=== PATIENT | female | born 1965 | race Caucasian/White ===

== ENCOUNTER 2019-08-26 19:41 | Observation (INO) ==
[2019-08-26 19:56] VITALS: BMI 32.7
[2019-08-26 20:23] LABS: BILIRUBIN,URINE NEGATIVE (NEGATIVE); BLOOD/HEMOGLOBIN,URINE 2+ (NEGATIVE); GLUCOSE, URINE NEGATIVE (NEGATIVE); KETONES,URINE 2+ (NEGATIVE); LEUKOCYTE ESTERASE ,URINE 2+ (NEGATIVE); NITRITES,URINE POSITIVE (NEGATIVE); PROTEIN,URINE 2+ (NEGATIVE); UROBILINOGEN,URINE NORMAL (NORMAL)
[2019-08-26 20:26] LABS: APPEARANCE,URINE CLEAR (CLEAR); COLOR,URINE YELLOW (YELLOW)
[2019-08-26 20:30] LABS: BACTERIA,URINE 3+ /HPF (NEGATIVE); SQUAMOUS EPITHELIAL CELL,UR FEW /HPF (NEGATIVE)
[2019-08-26] MEDS ORDERED: NS 1000 ML 1,000 ML IV ONE (20:43)
[2019-08-26] MEDS ORDERED: MORPHINE SULFATE INJ 4 MG IVP ONE (20:43)
[2019-08-26] MEDS ORDERED: ZOFRAN INJ 4 MG VIAL IVP ONE (20:43)
--- NOTE | 2019-08-26 20:46 | DR.GENAD ---
HPI - PCP Primary Care Physician: mary fiore - HPI Comment HPI Comment: 54 y/o w/extensive abd issues and 40 lbs wt loss over the past 1-2 month finished macrobid earlier this month and presents now with llq pain x one day as well as persistent decrease in appetite and worsening weakness; she has nausea but no vomiting and had diarrhea yesterday; she was to have repair of "large hiatal hernia" earlier this month but was found to have severe gastroparesis just prior to the surgery and was scheduled for gastric emptying study instead; she apparently also recently developed afib and is undergoing eval for that; she passed out a few days ago supposedly from dehydration; she has had kidney stones in the past but denies hematuria and dysuria currently. - Complaint/Symptoms Chief Complaint:: pt states" i feel like my heart maybe in a-fib. I been sick for the last few days just feeling bad. I just got over a bad uti i'm not sure whats wrong I just feel bad" - Nurses notes reviewed Nurses Notes Review: Yes - Source History Provided: Patient - Mode of Arrival Mode of Arrival: Ambulatory - Timing Onset of Chief Complaint: 08/23/19 PMH - PMH Past Medical History: Yes Past Medical History: GERD, Hypertension Past Medical History Comment: Afib Past Surgical History: Yes Surgical History: Appendectomy, Cholecystectomy, Hysterectomy, Other - Family History History of Family Medical Conditions: Yes Family Medical History: Cancer - Social History Do you use any recreational Drugs:: No Lives With: Spouse Lives Where: Home - infectious screening In the last 2 months have you had wt loss of >10#?: NO Have you had fever, night sweats or hemotysis?: No Have you traveled outside the country in the last 6 months?: No Isolation: Standard ROS - Review of Systems Constitutional: Fever, Malaise, Fatigue, Loss of Appetite Eyes: No Symptoms Reported ENTM: No Symptoms Reported Respiratoy: No Symptoms Reported Cardiovascular: See HPI, Palpitations, Syncope Gastrointestinal/Abdominal: See HPI, Abdominal Pain, Nausea Genitourinary: No Symptoms Reported, See HPI Neurological: See HPI, Weakness Musculoskeletal: No Symptoms Reported Integumentary: No Symptoms Reported Hematologic/Lymphatic: No Symptoms Reported Endocrine: No Symptoms Reported Psychiatric: No Symptoms Reported PE - General Limitations: No Limitations General Appearance: Alert, In No Apparent Distress - Head Head Exam: Normal Inspection - Eyes Eye exam: Normal Appearance - ENT ENT Exam: Normal Exam Nose Exam: Normal Nose Exam Mouth Exam: Normal Inspection - Neck Neck Exam: Normal Inspection - Chest Chest Inspection: Normal Inspection, Symmetric Chest Wall Rise - Respiratory Respiratory Exam: Normal Lung Sounds Bilat Respiratory Exam: Bilateral Clear to Auscultation - Abdominal Exam Abdominal Exam: Normal Inspection, Soft, Tenderness, Hypoactive Bowel Sounds Abdominal Tenderness: LUQ - Extremities Extremities Exam: Normal Inspection, Full ROM - Neurologic Neurological Exam: Alert, Oriented X3, CN II-XII Intact - Psychiatric Psychiatric Exam: Normal Affect - Skin Skin Exam: Warm, Dry - Vital Signs Vitals: Temperature 101.2 F Pulse Rate 99 Respiratory Rate 20 Blood Pressure 138/82 O2 Sat by Pulse Oximetry 100 Course - Reevaluation 1st: Unchanged (still w/quite a bit of pain; "morphine doesn't work for me; demerol does better") - Consultation Called: 22:40 (Tito) Call Returned: 22:44 Consultation Comments: accepted ROR - Labs Reviewed Laboratory Results Reviewed?: Yes Result Diagrams: 08/26/19 21:20 08/26/19 21:20 - Other Results Comments: No CT evidence of obstructive uropathy is appreciated. Cholecystectomy. Appendectomy. Hysterectomy. - XRAY XRAY Interpreted by: Radiologist - Labs Reviewed Laboratory: WBC 6.7 X10^3/uL (3.6-10.0) 08/26/19 21:20 RBC 4.67 X10^6/uL (3.5-5.4) 08/26/19 21:20 Hgb 15.1 g/dL (12.0-16.0) 08/26/19 21:20 Hct 43.4 % (36.0-47.0) 08/26/19 21:20 MCV 92.9 fL (80.0-100.0) 08/26/19 21:20 MCH 32.4 pg (27.0-34.0) 08/26/19 21:20 MCHC 34.9 g/dL (33.0-35.0) 08/26/19 21:20 RDW 14.1 % (11.6-16.5) 08/26/19 21:20 Plt Count 290 X10^3/uL (150.0-450.0) 08/26/19 21:20 MPV 8.1 fL (7.4-11.0) 08/26/19 21:20 Neut % (Auto) 54.8 % (42.0-75.0) 08/26/19 21:20 Lymph % (Auto) 36.9 % (21.0-51.0) 08/26/19 21:20 [place] % (Auto) 6.1 % (0.0-13.0) 08/26/19 21:20 Eos % (Auto) 1.2 % (0.9-2.9) 08/26/19 21:20 Baso % (Auto) 1.0 % (0.2-1.0) 08/26/19 21:20 Neut # (Auto) 3.7 x10^3/uL (2.2-4.8) 08/26/19 21:20 Lymph # (Auto) 2.5 X10^3/uL (1.3-2.9) 08/26/19 21:20 [place] # (Auto) 0.4 x10^3/uL (0.3-0.8) 08/26/19 21:20 Eos # (Auto) 0.1 x10^3/uL (0.0-0.2) 08/26/19 21:20 Baso # (Auto) 0.1 X10^3/uL (0.0-0.1) 08/26/19 21:20 Absolute Nucleated RBC 0.0 /100WBC 08/26/19 21:20 Sodium 143 mmol/L (136-145) 08/26/19 21:20 Corrected Sodium TNP 08/26/19 21:20 Potassium 4.0 mmol/L (3.5-5.1) 08/26/19 21:20 Chloride 106 mmol/L (98-107) 08/26/19 21:20 Carbon Dioxide 20.8 mmol/L (21-32) L 08/26/19 21:20 BUN 17 mg/dL (7-18) 08/26/19 21:20 Creatinine 1.14 mg/dL (0.55-1.02) H 08/26/19 21:20 Est GFR (MDRD) Af Amer > 60 (>60) 08/26/19 21:20 Est GFR (MDRD) Non-Af 52 (>60) L 08/26/19 21:20 Glucose 95 mg/dL (65-99) 08/26/19 21:20 Lactic Acid 1.9 mmol/L (0.4-2.0) 08/26/19 22:50 Calcium 9.9 mg/dL (8.5-10.1) 08/26/19 21:20 Corrected Calcium TNP 08/26/19 21:20 Total Bilirubin 0.40 mg/dL (0.2-1.0) 08/26/19 21:20 AST 21 Units/L (15-37) 08/26/19 21:20 ALT 29 Units/L (12-78) 08/26/19 21:20 Alkaline Phosphatase 72 Units/L (46-116) 08/26/19 21:20 Creatine Kinase 81 Units/L (26-192) 08/26/19 21:20 CK-MB (CK-2) < 1.0 ng/mL (0-4.0) 08/26/19 21:20 CK/CKMB % Calc 1.2 % (<4) 08/26/19 21:20 Troponin I < 0.02 ng/mL (0-1.5) 08/26/19 21:20 Total Protein 8.7 g/dL (6.4-8.2) H 08/26/19 21:20 Albumin 4.3 g/dL (3.4-5.0) 08/26/19 21:20 Globulin 4.4 g/dL (2.5-4.5) 08/26/19 21:20 Albumin/Globulin Ratio 1.0 Ratio (1.1-2.1) L 08/26/19 21:20 Specimen Type Clean catch urine 08/26/19 19:58 Urine Color Yellow (YELLOW) 08/26/19 19:58 Urine Appearance Clear (CLEAR) 08/26/19 19:58 Urine pH 5.0 (5.0 - 8.0) 08/26/19 19:58 Ur Specific [place] 1.025 (1.000-1.030) 08/26/19 19:58 Urine Protein 2+ (NEGATIVE) 08/26/19 19:58 Urine Glucose (UA) Negative (NEGATIVE) 08/26/19 19:58 Urine Ketones 2+ (NEGATIVE) 08/26/19 19:58 Urine Occult Blood 2+ (NEGATIVE) 08/26/19 19:58 Urine Nitrite Positive (NEGATIVE) 08/26/19 19:58 Urine Bilirubin Negative (NEGATIVE) 08/26/19 19:58 Urine Urobilinogen Normal (NORMAL) 08/26/19 19:58 Ur Leukocyte Esterase 2+ (NEGATIVE) 08/26/19 19:58 Urine RBC 5-10 /HPF (0-3) A 08/26/19 19:58 Urine WBC 30-50 /HPF (0-5) A 08/26/19 19:58 Ur Squamous Epith Cells Few /HPF (NEGATIVE) 08/26/19 19:58 Urine Bacteria 3+ /HPF (NEGATIVE) 08/26/19 19:58 Ur Culture Indicated? Yes/culture set up 08/26/19 19:58 Influenza Type A (PCR) Negative (NEGATIVE) 08/26/19 19:58 Influenza Type B (PCR) Negative (NEGATIVE) 08/26/19 19:58 S. pyogenes (TEM-PCR) Not detected (NOT DETECT) 08/26/19 19:58 Opioid - Opioid Risk Tool Age (Porfirio box if 16-45): No History of Preadolescent Sexual Abuse: No Total: 0 Total Score Risk Category: Low Risk - Diagnosis Discharge Problem: Cystitis, Fluttering heart, Nausea, Chest pain, atypical Sepsis Qualifiers: Sepsis type: sepsis due to unspecified organism Sepsis acute organ dysfunction status: without acute organ dysfunction Qualified Code(s): A41.9 - Sepsis, unspecified organism Abdominal pain Qualifiers: Abdominal location: left lower quadrant Qualified Code(s): R10.32 - Left lower quadrant pain - Discharge Plan Disposition: 09 ADMITTED INPATIENT Condition: Stable - Follow ups/Referrals Follow ups/Referrals: MARY FIORE [Primary Care Provider] - 3 days - Instructions Instructions: Nausea, Adult Additional Notes - Additional Notes Additional Notes: 2318 pt c/o intermittent "stabbing" cp "but you know I've got that anxiety too"; started after IV zosyn hung; appears anxious; constantly moving; no diaphoresis, tachy, reg, clear
[2019-08-26 20:55] LABS: STREP A BY PCR NOT DETECTED (NOT DETECT)
[2019-08-26] MEDS ORDERED: ZOFRAN INJ 4 MG VIAL ONE (21:04)
[2019-08-26] MEDS ORDERED: NS 1000 ML 1,000 ML ONE ×2 (21:04→22:46)
[2019-08-26] MEDS ORDERED: MORPHINE SULFATE INJ 4 MG ONE (21:05)
--- NOTE | 2019-08-26 21:31 | CT ---
HISTORY: Left lower quadrant pain, hematuria Study: CT abdomen and pelvis without contrast Comparison: January 27, 2015 Technique: Multiple axial images of the abdomen and pelvis were obtained from the lung bases to the pubic symphysis without the administration of IV contrast. Findings: The visualized portions of the lung bases are unremarkable. The liver, spleen, pancreas, adrenals, and kidneys are grossly unremarkable in appearance given limitations of this noncontrast exam. No CT evidence of hydronephrosis is identified. Surgical clips are seen within the gallbladder fossa. By history the appendix and uterus have been surgically removed. Evaluation of the stomach, small bowel, and colon is limited without oral contrast. The urinary bladder is not well distended but otherwise grossly unremarkable. Degenerative changes are seen within the visualized spine. IMPRESSION: No CT evidence of obstructive uropathy is appreciated. Cholecystectomy. Appendectomy. Hysterectomy. Reported By:
[2019-08-26 21:32] LABS: BASOPHILS # (AUTO) 0.1 X10^3/uL (0.0-0.1); EOSINOPHILS # (AUTO) 0.1 x10^3/uL (0.0-0.2); EOSINOPHILS % (AUTO) 1.2 % (0.9-2.9); HEMATOCRIT 43.4 % (36.0-47.0); HEMOGLOBIN 15.1 g/dL (12.0-16.0); LYMPHOCYTES # (AUTO) 2.5 X10^3/uL (1.3-2.9); LYMPHOCYTES % (AUTO) 36.9 % (21.0-51.0); MEAN CORPUSCULAR HEMOGLOBIN 32.4 pg (27.0-34.0); MEAN CORPUSCULAR HGB CONC 34.9 g/dL (33.0-35.0); MEAN CORPUSCULAR VOLUME 92.9 fL (80.0-100.0); MEAN PLATELET VOLUME 8.1 fL (7.4-11.0); MONOCYTES # (AUTO) 0.4 x10^3/uL (0.3-0.8); MONOCYTES % (AUTO) 6.1 % (0.0-13.0); NEUTROPHILS # (AUTO) 3.7 x10^3/uL (2.2-4.8); NEUTROPHILS % (AUTO) 54.8 % (42.0-75.0); PLATELET COUNT 290 X10^3/uL (150.0-450.0); RED BLOOD COUNT 4.67 X10^6/uL (3.5-5.4); RED CELL DISTRIBUTION WIDTH 14.1 % (11.6-16.5); WHITE BLOOD COUNT 6.7 X10^3/uL (3.6-10.0)
[2019-08-26 21:42] LABS: ALANINE AMINOTRANSFERASE 29 Units/L (12-78); ALBUMIN 4.3 g/dL (3.4-5.0); ALKALINE PHOSPHATASE 72 Units/L (46-116); ASPARTATE AMINO TRANSFERASE 21 Units/L (15-37); BLOOD UREA NITROGEN 17 mg/dL (7-18); CALCIUM 9.9 mg/dL (8.5-10.1); CARBON DIOXIDE 20.8 mmol/L (21-32); CHLORIDE 106 mmol/L (98-107); CREATININE 1.14 mg/dL (0.55-1.02); SODIUM 143 mmol/L (136-145); TOTAL PROTEIN 8.7 g/dL (6.4-8.2); eGFR NON BLACK RACES 52 (>60)
[2019-08-26] MEDS ORDERED: ZOSYN VIAL 3.375 GRAMS 3.375 G in NS 100 ML IV + SPIKE MINIBAG* 100 ML IV ONE (22:39)
[2019-08-26] MEDS ORDERED: ZOSYN VIAL 3.375 GRAMS IV ONE (22:45)
[2019-08-26] MEDS ORDERED: NS 100 ML IV + SPIKE MINIBAG* 100 ML IV ONE (22:45)
[2019-08-26] MEDS ORDERED: OFIRMEV IV 1000 MG VIAL 1,000 MG/100 ML VIAL IV PRN (22:52)
[2019-08-26] MEDS ORDERED: ZOFRAN INJ 4 MG VIAL IVP PRN (22:52)
[2019-08-26] MEDS: DEMEROL INJ IVP PRN (23:08)
[2019-08-26] MEDS: ATIVAN INJ 2 MG VIAL IVP PRN (23:27)
[2019-08-26 23:40] LABS: CKMB % 1.2 % (<4); CREATINE KINASE 81 Units/L (26-192); CREATINE KINASE MB < 1.0 ng/mL (0-4.0); TROPONIN I < 0.02 ng/mL (0-1.5)
[2019-08-27] MEDS ORDERED: NS 100 ML IV + SPIKE MINIBAG* 100 ML IV ONE ×2 (05:41→13:00)
[2019-08-27] MEDS: ZOSYN VIAL 3.375 GRAMS IV SCH ×2 (06:08→13:55)
[2019-08-27 07:37] LABS: BASOPHILS % (AUTO) 0.6 % (0.2-1.0); EOSINOPHILS # (AUTO) 0.1 x10^3/uL (0.0-0.2); EOSINOPHILS % (AUTO) 1.9 % (0.9-2.9); HEMATOCRIT 41.6 % (36.0-47.0); HEMOGLOBIN 14.1 g/dL (12.0-16.0); LYMPHOCYTES # (AUTO) 2.2 X10^3/uL (1.3-2.9); LYMPHOCYTES % (AUTO) 40.3 % (21.0-51.0); MEAN CORPUSCULAR HEMOGLOBIN 31.9 pg (27.0-34.0); MEAN CORPUSCULAR HGB CONC 33.9 g/dL (33.0-35.0); MEAN CORPUSCULAR VOLUME 94.2 fL (80.0-100.0); MONOCYTES # (AUTO) 0.4 x10^3/uL (0.3-0.8); MONOCYTES % (AUTO) 8.1 % (0.0-13.0); NEUTROPHILS # (AUTO) 2.7 x10^3/uL (2.2-4.8); NEUTROPHILS % (AUTO) 49.1 % (42.0-75.0); PLATELET COUNT 236 X10^3/uL (150.0-450.0); RED BLOOD COUNT 4.41 X10^6/uL (3.5-5.4); RED CELL DISTRIBUTION WIDTH 14.3 % (11.6-16.5); WHITE BLOOD COUNT 5.6 X10^3/uL (3.6-10.0)
[2019-08-27 07:49] LABS: ALANINE AMINOTRANSFERASE 27 Units/L (12-78); ALBUMIN 3.6 g/dL (3.4-5.0); ALKALINE PHOSPHATASE 65 Units/L (46-116); ASPARTATE AMINO TRANSFERASE 21 Units/L (15-37); BLOOD UREA NITROGEN 17 mg/dL (7-18); CHLORIDE 108 mmol/L (98-107); CREATININE 1.02 mg/dL (0.55-1.02); SODIUM 143 mmol/L (136-145); TOTAL PROTEIN 7.4 g/dL (6.4-8.2); eGFR NON BLACK RACES 60 (>60)
[2019-08-27 08:05] LABS: CKMB % 1.3 % (<4); CREATINE KINASE 78 Units/L (26-192); CREATINE KINASE MB < 1.0 ng/mL (0-4.0); TROPONIN I < 0.02 ng/mL (0-1.5)
[2019-08-27] MEDS ORDERED: ZOFRAN TAB 4 MG PO PRN (08:12)
[2019-08-27] MEDS ORDERED: PREVNAR 13 IM ONE (08:14)
[2019-08-27 08:40] LABS: CHOL/HDL RATIO 7.9 (0.0-5.0)
[2019-08-27] MEDS ORDERED: LOPRESSOR TAB 50 MG PO SCH (09:00)
[2019-08-27] MEDS: PROTONIX TAB 40 MG PO SCH (09:55)
[2019-08-27] MEDS: DEMEROL INJ IVP PRN ×3 (10:17→23:07)
[2019-08-27] MEDS: CARAFATE ORAL SUSP PO SCH ×3 (10:42→20:47)
--- NOTE | 2019-08-27 11:13 | DR.H&P ---
H&P History & Physical for Day of: H&P Date: 08/27/19 Chief Complaint Chief Complaint: Abdominal pain Allergies Allergies Allergy/AdvReac Type Severity Reaction Status Date / Time codeine Allergy Verified 08/26/19 19:52 History of Present Illness History of Present Illness: Pt is a 54 yo f w/ pmhx of Afib, gastroparesis, dysphagia c/o abdominal pain(LLQ, sharp), weakness, and fatigue x 2-3 days. She states she recently completed a course macrobid earlier this month for similar sx. Reports nausea, diarrhea, dysuria, hematuria. Denies fevers, chills, chest pain, shortness of breath, edema. She reports over the past year has had multiple now chronic sx including weight loss of 40 lbs, persistent decrease in appetite, and worsening weakness. She was to have repair of "large hiatal hernia" earlier this month after having EGD by Dr. Berkowitz(Gen Surg) in [facility]. She was referred to specialist in [place] and had barium swallow that showed severe gastroparesis. She also reports recently having episode of pancreatitis for the first time this year and was treated at [facility]. Her Afib hx is after she had a reaction in the past to codeine. Since she is followed by cardiology-Dr Gomez in [place], has had heart cath that was normal and was told likely "electrical conduction" of heart that will need to be evaluated. Past Medical History Past Medical History: GERD and Hypertension Past Surgical History Surgical History: Appendectomy, Cholecystectomy, Hysterectomy and Ortho Surgery Family History Family Medical History: Diabetes Mellitus, [place] and Hypertension Social History Does patient currently use any type of tobacco product: No Have you used tobacco products in the last 12 months: No Type of Tobacco Use: None Does any household member use tobacco: No Alcohol Use: None Drug Use: None Medications Home Medications: codeine Allergy (Verified 08/26/19 19:52) CONTINUE taking the following medications butalbital-acetaminophen [Bupap] 1 tab PO BID PRN 08/27/19 [History] Labs Result Diagrams: 08/27/19 07:25 08/27/19 07:25 Labs: 08/26/19 19:58 Urine,Clean Catch Urine Culture - Preliminary Laboratory WBC 5.6 X10^3/uL (3.6-10.0) 08/27/19 07:25 RBC 4.41 X10^6/uL (3.5-5.4) 08/27/19 07:25 Hgb 14.1 g/dL (12.0-16.0) 08/27/19 07:25 Hct 41.6 % (36.0-47.0) 08/27/19 07:25 MCV 94.2 fL (80.0-100.0) 08/27/19 07:25 MCH 31.9 pg (27.0-34.0) 08/27/19 07:25 MCHC 33.9 g/dL (33.0-35.0) 08/27/19 07:25 RDW 14.3 % (11.6-16.5) 08/27/19 07:25 Plt Count 236 X10^3/uL (150.0-450.0) 08/27/19 07:25 MPV 8.0 fL (7.4-11.0) 08/27/19 07:25 Neut % (Auto) 49.1 % (42.0-75.0) 08/27/19 07:25 Lymph % (Auto) 40.3 % (21.0-51.0) 08/27/19 07:25 [place] % (Auto) 8.1 % (0.0-13.0) 08/27/19 07:25 Eos % (Auto) 1.9 % (0.9-2.9) 08/27/19 07:25 Baso % (Auto) 0.6 % (0.2-1.0) 08/27/19 07:25 Neut # (Auto) 2.7 x10^3/uL (2.2-4.8) 08/27/19 07:25 Lymph # (Auto) 2.2 X10^3/uL (1.3-2.9) 08/27/19 07:25 [place] # (Auto) 0.4 x10^3/uL (0.3-0.8) 08/27/19 07:25 Eos # (Auto) 0.1 x10^3/uL (0.0-0.2) 08/27/19 07:25 Baso # (Auto) 0.0 X10^3/uL (0.0-0.1) 08/27/19 07:25 Absolute Nucleated RBC 0.1 /100WBC 08/27/19 07:25 Sodium 143 mmol/L (136-145) 08/27/19 07:25 Corrected Sodium TNP 08/27/19 07:25 Potassium 4.3 mmol/L (3.5-5.1) 08/27/19 07:25 Chloride 108 mmol/L (98-107) H 08/27/19 07:25 Carbon Dioxide 22.0 mmol/L (21-32) 08/27/19 07:25 BUN 17 mg/dL (7-18) 08/27/19 07:25 Creatinine 1.02 mg/dL (0.55-1.02) 08/27/19 07:25 Est GFR (MDRD) Af Amer > 60 (>60) 08/27/19 07:25 Est GFR (MDRD) Non-Af 60 (>60) 08/27/19 07:25 Glucose 92 mg/dL (65-99) 08/27/19 07:25 Lactic Acid 1.9 mmol/L (0.4-2.0) 08/26/19 22:50 Calcium 9.0 mg/dL (8.5-10.1) 08/27/19 07:25 Corrected Calcium TNP 08/27/19 07:25 Magnesium 2.1 mg/dL (1.7-2.9) 08/27/19 07:25 Total Bilirubin 0.40 mg/dL (0.2-1.0) 08/27/19 07:25 AST 21 Units/L (15-37) 08/27/19 07:25 ALT 27 Units/L (12-78) 08/27/19 07:25 Alkaline Phosphatase 65 Units/L (46-116) 08/27/19 07:25 Creatine Kinase 78 Units/L (26-192) 08/27/19 07:25 CK-MB (CK-2) < 1.0 ng/mL (0-4.0) 08/27/19 07:25 CK/CKMB % Calc 1.3 % (<4) 08/27/19 07:25 Troponin I < 0.02 ng/mL (0-1.5) 08/27/19 07:25 Total Protein 7.4 g/dL (6.4-8.2) 08/27/19 07:25 Albumin 3.6 g/dL (3.4-5.0) 08/27/19 07:25 Globulin 3.8 g/dL (2.5-4.5) 08/27/19 07:25 Albumin/Globulin Ratio 0.9 Ratio (1.1-2.1) L 08/27/19 07:25 Triglycerides 313 mg/dL (0-150) H 08/27/19 07:25 Cholesterol 245 mg/dL (0-200) H 08/27/19 07:25 LDL Cholesterol, Calc 151 mg/dL (0-100) H 08/27/19 07:25 HDL Cholesterol 31 mg/dL (40-60) L 08/27/19 07:25 Cholesterol/HDL Ratio 7.9 (0.0-5.0) H 08/27/19 07:25 Lipase 124 Units/L (73-393) 08/27/19 07:25 Specimen Type Clean catch urine 08/26/19 19:58 Urine Color Yellow (YELLOW) 08/26/19 19:58 Urine Appearance Clear (CLEAR) 08/26/19 19:58 Urine pH 5.0 (5.0 - 8.0) 08/26/19 19:58 Ur Specific [place] 1.025 (1.000-1.030) 08/26/19 19:58 Urine Protein 2+ (NEGATIVE) 08/26/19 19:58 Urine Glucose (UA) Negative (NEGATIVE) 08/26/19 19:58 Urine Ketones 2+ (NEGATIVE) 08/26/19 19:58 Urine Occult Blood 2+ (NEGATIVE) 08/26/19 19:58 Urine Nitrite Positive (NEGATIVE) 08/26/19 19:58 Urine Bilirubin Negative (NEGATIVE) 08/26/19 19:58 Urine Urobilinogen Normal (NORMAL) 08/26/19 19:58 Ur Leukocyte Esterase 2+ (NEGATIVE) 08/26/19 19:58 Urine RBC 5-10 /HPF (0-3) A 08/26/19 19:58 Urine WBC 30-50 /HPF (0-5) A 08/26/19 19:58 Ur Squamous Epith Cells Few /HPF (NEGATIVE) 08/26/19 19:58 Urine Bacteria 3+ /HPF (NEGATIVE) 08/26/19 19:58 Ur Culture Indicated? Yes/culture set up 08/26/19 19:58 Influenza Type A (PCR) Negative (NEGATIVE) 08/26/19 19:58 Influenza Type B (PCR) Negative (NEGATIVE) 08/26/19 19:58 S. pyogenes (TEM-PCR) Not detected (NOT DETECT) 08/26/19 19:58 Review of Systems Constitutional: Weakness; denies Fever and Chills Eyes: No Symptoms Reported ENT: No Symptoms Reported Respiratory: denies Cough, Shortness of Breath and Wheezing Cardiovascular: denies Chest Pain, Palpitations and Edema Gastrointestinal: Nausea, Abdominal Pain (LLQ) and Diarrhea; denies Vomiting and Constipation Genitourinary: Dysuria, Frequency and Hematuria Musculoskeletal: No Symptoms Reported Skin: No Symptoms Reported Neurological: No Symptoms Reported Physical Exam Vital Signs: Temperature 97.8 F Pulse Rate [Left Brachial] 81 Pulse Rate 99 Respiratory Rate 20 Blood Pressure [Left Arm] 129/75 Blood Pressure 138/82 O2 Sat by Pulse Oximetry 99 Oriented: Normal Eyes: Normal Ear: Normal Nose: Normal Throat: Normal Respiratory: Clear Throughout Cardiovascular: Normal : Dysuria and Hematuria Auscultation: Bowel Sounds: Increased Tenderness: LLQ Skin: Normal Musculoskeletal: Normal Psychiatric: Normal Mood Description: Calm Affect: Normal Speech Pattern: Clear Assessment/Plan (1) Cystitis: Status: Acute Plan: Continue IV Zosyn UrineCx:prelim gram - rods >100k, pending final (2) Acute renal failure (ARF): Qualifiers: Acute renal failure type: unspecified Qualified Code(s): N17.9 - Acute kidney failure, unspecified Status: Acute Plan: Likely d/t dehydration, pt tolerating po intake. Renal function improving. Cr:1.14>1.02 (3) Atrial flutter: Qualifiers: Atrial flutter type: unspecified Qualified Code(s): I48.92 - Unspecified atrial flutter Status: Acute Plan: EKG NSR, cardiac enzymes negative. Continue home metoprolol tart. (4) Nondiabetic gastroparesis: Status: Acute (5) Dysphagia: Qualifiers: Dysphagia type: unspecified Qualified Code(s): R13.10 - Dysphagia, unspecified Status: Acute Plan: Will get autoimmune labs to r/o other etiologies. Speech consulted (6) Mixed hyperlipidemia: Status: Acute Plan: ASCVD:4.5%, no statin indicated.
--- NOTE | 2019-08-27 11:33 | RAD ---
HISTORY: Fever Study: Two-view chest Comparison: 07/16/2019. Findings: There is again evidence of lower cervical spine surgery with metallic plate and screws. Trachea is midline. Heart size is upper normal with aortic uncoiling. Linear foci of atelectasis are present the lung bases. The process appears to have increased slightly in the left lung base. No dense consolidation, pleural fluid or pneumothorax is seen. There is no evidence of CHF. IMPRESSION: Bibasilar linear foci of atelectasis. The process appears to have increased slightly in the left lung base. Dense consolidation is seen. Reported By:
[2019-08-27 13:06] LABS: RHEUMATOID FACTOR POSITIVE (NEGATIVE)
[2019-08-27 16:49] LABS: CKMB % 1.3 % (<4); CREATINE KINASE 80 Units/L (26-192); CREATINE KINASE MB < 1.0 ng/mL (0-4.0); TROPONIN I < 0.02 ng/mL (0-1.5)
--- NOTE | 2019-08-27 18:54 | CT ---
CT CHEST WITHOUT IV CONTRAST HISTORY: Follow-up scarring/atelectasis Comparison: Abdomen pelvis CT 08/26/2019 Technique: Multiple axial images of the chest were obtained from the thoracic inlet to the upper abdomen. Dose reduction techniques including Automated Exposure Control (AEC) and adjustment of mA and kV were utlized. Findings: The evaluation of the mediastinal structures is diminished without the use of IV contrast. The heart is normal in size. No pericardial effusion. No suspicious mediastinal or axillary lymph nodes. No focal consolidations, pleural effusions or pneumothorax. Subsegmental atelectasis at the bilateral lung bases. This appears to be new when compared to 1 day prior. Airways are patent. No suspicious pulmonary nodules or masses. Limited images of the upper abdomen are unremarkable. No aggressive osseous lesions. IMPRESSION: 1. New subsegmental atelectasis at the lung bases bilaterally. This is of questionable clinical significance. Correlate with patient's clinical presentation. Reported By:
[2019-08-27] MEDS: ZOSYN VIAL 3.375 GRAMS 3.375 G in NS 100 ML IV + SPIKE MINIBAG* 100 ML IV SCH (21:00)
[2019-08-28] MEDS: ATIVAN INJ 2 MG VIAL IVP PRN ×2 (00:48→14:25)
[2019-08-28] MEDS: DEMEROL INJ IVP PRN ×2 (06:05→12:08)
[2019-08-28] MEDS: CARAFATE ORAL SUSP PO SCH ×2 (06:13→10:50)
[2019-08-28] MEDS: ZOSYN VIAL 3.375 GRAMS 3.375 G in NS 100 ML IV + SPIKE MINIBAG* 100 ML IV SCH (06:13)
[2019-08-28 06:29] LABS: BASOPHILS % (AUTO) 0.8 % (0.2-1.0); EOSINOPHILS # (AUTO) 0.2 x10^3/uL (0.0-0.2); HEMATOCRIT 39.5 % (36.0-47.0); HEMOGLOBIN 13.4 g/dL (12.0-16.0); LYMPHOCYTES # (AUTO) 2.3 X10^3/uL (1.3-2.9); LYMPHOCYTES % (AUTO) 42.5 % (21.0-51.0); MEAN CORPUSCULAR HEMOGLOBIN 32.1 pg (27.0-34.0); MEAN CORPUSCULAR HGB CONC 33.8 g/dL (33.0-35.0); MEAN CORPUSCULAR VOLUME 94.8 fL (80.0-100.0); MEAN PLATELET VOLUME 8.3 fL (7.4-11.0); MONOCYTES # (AUTO) 0.5 x10^3/uL (0.3-0.8); MONOCYTES % (AUTO) 8.6 % (0.0-13.0); NEUTROPHILS # (AUTO) 2.4 x10^3/uL (2.2-4.8); NEUTROPHILS % (AUTO) 45.1 % (42.0-75.0); PLATELET COUNT 236 X10^3/uL (150.0-450.0); RED BLOOD COUNT 4.17 X10^6/uL (3.5-5.4); RED CELL DISTRIBUTION WIDTH 13.9 % (11.6-16.5); WHITE BLOOD COUNT 5.4 X10^3/uL (3.6-10.0)
[2019-08-28 06:30] LABS: BLOOD UREA NITROGEN 12 mg/dL (7-18); CALCIUM 9.2 mg/dL (8.5-10.1); CARBON DIOXIDE 21.8 mmol/L (21-32); CHLORIDE 109 mmol/L (98-107); CREATININE 0.93 mg/dL (0.55-1.02); SODIUM 142 mmol/L (136-145); eGFR NON BLACK RACES > 60 (>60)
[2019-08-28] MEDS ORDERED: LOPRESSOR TAB 25 MG PO SCH (09:00)
[2019-08-28] MEDS: PROTONIX TAB 40 MG PO SCH (09:00)
[2019-08-28] MEDS ORDERED: PHENERGAN TAB 25 MG PO PRN (09:24)
--- NOTE | 2019-08-28 09:30 | PCM.PROG ---
Progress Note Progress Note for Day of Date of Exam: 08/28/19 Subjective Subjective: Pt is a 54 yo f w/ pmhx of Afib, gastroparesis, dysphagia c/o abdominal pain(LLQ, sharp), weakness, and fatigue x 2-3 days. She states she recently completed a course macrobid earlier this month for similar sx. Reports over the past year has had multiple now chronic sx including weight loss of 40 lbs, persistent decrease in appetite, and worsening weakness. She was to have repair of "large hiatal hernia" earlier this month after having EGD by Dr. Berkowitz(Gen Surg) in [place]. She was referred to [facility] in [place] and had barium swallow that showed severe gastroparesis but then was told did not need surgery for hernia. She also reports recently having episode of pancreatitis for the first time this year and was treated at [facility]. -Pt feeling a little better this morning, still c/o nausea and decreased appetite. Abdominal pain has improved. Past Medical Family Social History Past Med/Fam/Surg Hx: No changes since H&P Allergies: Allergies codeine Allergy (Verified 08/26/19 19:52) Review of Systems ROS: Changes notes (describe) ROS changes noted: See above. Vital Signs and I&O's Vital Signs: Temperature 98.2 F Pulse Rate [Right Brachial] 72 Pulse Rate [Left Brachial] 66 Pulse Rate 99 Respiratory Rate 18 Blood Pressure [Right Arm] 111/68 Blood Pressure [Left Arm] 114/62 Blood Pressure 138/82 O2 Sat by Pulse Oximetry 96 Intake and Output: Intake & Output 08/25/19 08/26/19 08/27/19 08/28/19 23:59 23:59 23:59 23:59 Intake Total 1260 / 1260 0 / 0 Output Total 750 / 750 0 / 0 Balance 510 / 510 0 / 0 Physical Exam Oriented: Normal Eyes: Normal Ear: Normal Nose: Normal Throat: Normal Cardiovascular: Normal : Normal Auscultation: Bowel Sounds: Normal Tenderness: LLQ Skin: Normal Musculoskeletal: Normal Psychiatric: Normal Mood Description: Calm Affect: Normal Speech Pattern: Clear and Appropriate Laboratory and Diagnostics Result Diagrams: 08/28/19 05:22 08/28/19 05:22 Labs: 08/26/19 19:58 Urine,Clean Catch Urine Culture - Final Klebsiella Pneumoniae Laboratory WBC 5.4 X10^3/uL (3.6-10.0) 08/28/19 05:22 RBC 4.17 X10^6/uL (3.5-5.4) 08/28/19 05:22 Hgb 13.4 g/dL (12.0-16.0) 08/28/19 05:22 Hct 39.5 % (36.0-47.0) 08/28/19 05:22 MCV 94.8 fL (80.0-100.0) 08/28/19 05:22 MCH 32.1 pg (27.0-34.0) 08/28/19 05:22 MCHC 33.8 g/dL (33.0-35.0) 08/28/19 05:22 RDW 13.9 % (11.6-16.5) 08/28/19 05:22 Plt Count 236 X10^3/uL (150.0-450.0) 08/28/19 05:22 MPV 8.3 fL (7.4-11.0) 08/28/19 05:22 Neut % (Auto) 45.1 % (42.0-75.0) 08/28/19 05:22 Lymph % (Auto) 42.5 % (21.0-51.0) 08/28/19 05:22 [place] % (Auto) 8.6 % (0.0-13.0) 08/28/19 05:22 Eos % (Auto) 3.0 % (0.9-2.9) H 08/28/19 05:22 Baso % (Auto) 0.8 % (0.2-1.0) 08/28/19 05:22 Neut # (Auto) 2.4 x10^3/uL (2.2-4.8) 08/28/19 05:22 Lymph # (Auto) 2.3 X10^3/uL (1.3-2.9) 08/28/19 05:22 [place] # (Auto) 0.5 x10^3/uL (0.3-0.8) 08/28/19 05:22 Eos # (Auto) 0.2 x10^3/uL (0.0-0.2) 08/28/19 05:22 Baso # (Auto) 0.0 X10^3/uL (0.0-0.1) 08/28/19 05:22 Absolute Nucleated RBC 0.1 /100WBC 08/28/19 05:22 Sodium 142 mmol/L (136-145) 08/28/19 05:22 Corrected Sodium TNP 08/28/19 05:22 Potassium 4.0 mmol/L (3.5-5.1) 08/28/19 05:22 Chloride 109 mmol/L (98-107) H 08/28/19 05:22 Carbon Dioxide 21.8 mmol/L (21-32) 08/28/19 05:22 BUN 12 mg/dL (7-18) 08/28/19 05:22 Creatinine 0.93 mg/dL (0.55-1.02) 08/28/19 05:22 Est GFR (MDRD) Af Amer > 60 (>60) 08/28/19 05:22 Est GFR (MDRD) Non-Af > 60 (>60) 08/28/19 05:22 Glucose 85 mg/dL (65-99) 08/28/19 05:22 Lactic Acid 1.9 mmol/L (0.4-2.0) 08/26/19 22:50 Calcium 9.2 mg/dL (8.5-10.1) 08/28/19 05:22 Corrected Calcium TNP 08/27/19 07:25 Magnesium 2.1 mg/dL (1.7-2.9) 08/27/19 07:25 Total Bilirubin 0.40 mg/dL (0.2-1.0) 08/27/19 07:25 AST 21 Units/L (15-37) 08/27/19 07:25 ALT 27 Units/L (12-78) 08/27/19 07:25 Alkaline Phosphatase 65 Units/L (46-116) 08/27/19 07:25 Creatine Kinase 80 Units/L (26-192) 08/27/19 16:14 CK-MB (CK-2) < 1.0 ng/mL (0-4.0) 08/27/19 16:14 CK/CKMB % Calc 1.3 % (<4) 08/27/19 16:14 Troponin I < 0.02 ng/mL (0-1.5) 08/27/19 16:14 Total Protein 7.4 g/dL (6.4-8.2) 08/27/19 07:25 Albumin 3.6 g/dL (3.4-5.0) 08/27/19 07:25 Globulin 3.8 g/dL (2.5-4.5) 08/27/19 07:25 Albumin/Globulin Ratio 0.9 Ratio (1.1-2.1) L 08/27/19 07:25 Triglycerides 313 mg/dL (0-150) H 08/27/19 07:25 Cholesterol 245 mg/dL (0-200) H 08/27/19 07:25 LDL Cholesterol, Calc 151 mg/dL (0-100) H 08/27/19 07:25 HDL Cholesterol 31 mg/dL (40-60) L 08/27/19 07:25 Cholesterol/HDL Ratio 7.9 (0.0-5.0) H 08/27/19 07:25 Lipase 124 Units/L (73-393) 08/27/19 07:25 TSH 3rd Generation 5.163 uIU/mL (0.358-3.74) H 08/27/19 12:21 Specimen Type Clean catch urine 08/26/19 19:58 Urine Color Yellow (YELLOW) 08/26/19 19:58 Urine Appearance Clear (CLEAR) 08/26/19 19:58 Urine pH 5.0 (5.0 - 8.0) 08/26/19 19:58 Ur Specific [place] 1.025 (1.000-1.030) 08/26/19 19:58 Urine Protein 2+ (NEGATIVE) 08/26/19 19:58 Urine Glucose (UA) Negative (NEGATIVE) 08/26/19 19:58 Urine Ketones 2+ (NEGATIVE) 08/26/19 19:58 Urine Occult Blood 2+ (NEGATIVE) 08/26/19 19:58 Urine Nitrite Positive (NEGATIVE) 08/26/19 19:58 Urine Bilirubin Negative (NEGATIVE) 08/26/19 19:58 Urine Urobilinogen Normal (NORMAL) 08/26/19 19:58 Ur Leukocyte Esterase 2+ (NEGATIVE) 08/26/19 19:58 Urine RBC 5-10 /HPF (0-3) A 08/26/19 19:58 Urine WBC 30-50 /HPF (0-5) A 08/26/19 19:58 Ur Squamous Epith Cells Few /HPF (NEGATIVE) 08/26/19 19:58 Urine Bacteria 3+ /HPF (NEGATIVE) 08/26/19 19:58 Ur Culture Indicated? Yes/culture set up 08/26/19 19:58 Rheumatoid Factor Positive (NEGATIVE) A 08/27/19 12:21 Influenza Type A (PCR) Negative (NEGATIVE) 08/26/19 19:58 Influenza Type B (PCR) Negative (NEGATIVE) 08/26/19 19:58 S. pyogenes (TEM-PCR) Not detected (NOT DETECT) 08/26/19 19:58 Miscellaneous Test Cancelled 08/27/19 12:21 Plan (1) Cystitis: Status: Acute Plan: UrineCx:prelim gram - rods >100k, Final: Klebsiella Pneumonia Will change IV Zosyn to po abx, Keflex 500mg BID x 5days. (2) Acute renal failure (ARF): Status: Acute Qualifiers: Acute renal failure type: unspecified Qualified Code(s): N17.9 - Acute kidney failure, unspecified Plan: Likely d/t dehydration, pt tolerating po intake. Cr trending down. Cr:1.14>1.02>0.93 (3) Atrial flutter: Status: Acute Qualifiers: Atrial flutter type: unspecified Qualified Code(s): I48.92 - Unspecifi ed atrial flutter Plan: EKG NSR, cardiac enzymes negative. Continue home metoprolol tart. (4) Nondiabetic gastroparesis: Status: Acute Plan: -Pt has had barium swallow study outpt showing severe gastroparesis. -She will need urgent GI referral outpt d/t dysphagia, decreased appetite, and weight loss. CM to coordinate follow up with patient. Will start Reglan. -Autoimmune workup, labs are send out, can f/u results outpt (5) Dysphagia: Status: Acute Qualifiers: Dysphagia type: unspecified Qualified Code(s): R13.10 - Dysphagia, unspecified Plan: Will get autoimmune labs to r/o other etiologies. Referral to GI. Per speech:Pt reports she has been having difficulty with swallow function, reporting she has been undergoing several tests for GI issues. Pt reports she can only tolerate soft foods like pudding and applesauce at this time; however, reports no difficulty with thin liquids. Pt agreeable to dysphagia evaluation during hospital stay, but reports she is not able to participate at this time due to no desire to eat solids. (6) Mixed hyperlipidemia: Status: Acute Plan: ASCVD:4.5%, no statin indicated. (7) Gastritis: Status: Acute Qualifiers: Gastritis type: unspecified gastritis Chronicity: unspecified Gastritis bleeding: presence of bleeding unspecified Qualified Code(s): K29.70 - Gastritis, unspecified, without bleeding Plan: EGD this year, pt started taking protonix and Carafate. Will add zantac.
[2019-08-28] MEDS ORDERED: ZANTAC PO SCH (10:00)
[2019-08-28] MEDS ORDERED: KEFLEX CAP 500 MG PO SCH (10:00)
[2019-08-28] MEDS ORDERED: REGLAN TAB 5 MG PO SCH (11:30)
--- NOTE | 2019-08-28 11:40 | W.DIS.FURT ---
Summary of Discharge Discharge Summary of Date Date of Exam: 08/28/19 Admission Date Date of Admission: 08/27/19 Admission Diagnosis Patient Problems (Updated 08/28/19 @ 14:03 by Fercho Francis) UTI (urinary tract infection) (Acute) N39.0 Gastritis (Acute) K29.70 Mixed hyperlipidemia (Chronic) E78.2 Acute renal failure (ARF) (Acute) N17.9 Dysphagia (Acute) R13.10 Nondiabetic gastroparesis (Acute) K31.84 Atrial flutter (Chronic) I48.92 Abdominal pain (Acute) R10.9 Sepsis (Acute) A41.9 Cystitis (Acute) N30.90 Nausea (Acute) R11.0 Chest pain, atypical (Acute) R07.89 Hospital Course: Pt is a 54 yo f w/ pmhx of Afib, gastroparesis, dysphagia admitted for abdominal pain(LLQ, sharp), weakness, and fatigue x 2-3 days. She states she recently completed a course macrobid earlier this month for similar sx. Reports over the past year has had multiple now chronic sx including weight loss of 40 lbs, persistent decrease in appetite, worsening weakness. She also states having pancreatitis for the first time this year at hospital in [place]. She was to have repair of "large hiatal hernia" earlier this month after having EGD by Dr. Berkowitz(Gen Surg) in [place]. She was referred to surgical sales representative in [place] and had barium swallow that showed severe gastroparesis but then was told did not need surgery for hernia. It was advised she have a gastric emptying study but has not been done yet. Pt had atelectasis noted on CXR, CT chest and AI labs performed to help determine etiology or provide some evidence of possible underlying AI process that may be of cause for her sx. Impression:1.New subsegmental atelectasis at the lung bases bilaterally. This is of questionable clinical significance. Further evaluation if indicated to be determined by pcp on outpt follow up. Pt's labs and vitals improved and were wnl and stable on discharge. Discussed with CM urgent referral to GI for further evaluation. See below for hospital course. (1) Cystitis: UrineCx:prelim gram - rods >100k, Final: Klebsiella Pneumonia IV Zosyn changed to po abx, Keflex 500mg BID x 5days on d/c. (2) Acute renal failure (ARF): Likely d/t dehydration, resolved, Cr:1.14>1.02>0.93 (3) Atrial flutter: Pt w/ hx and was taking metoprolol tartrate 50mg once daily >changed to 25mg BID. EKG NSR, cardiac enzymes negative. Followed by cards outpt. (4) Nondiabetic gastroparesis:Pt has had barium swallow study outpt showing severe gastroparesis. -She will need urgent GI referral outpt d/t dysphagia, decreased appetite, and weight loss. CM to coordinate follow up with patient. Pt started on Reglan, to continue for sx relief on discharge. -Autoimmune workup, labs are send out, can f/u results outpt. (5) Dysphagia:Autoimmune labs results followed up outpt to r/o other etiologies. Referral to GI. Evaluated by ST:Bedside swallowing evaluation completed. Pt accepted puree consistency with no overt s/s of aspiration. Please see full evaluation for details. Pt's diet changed this date to puree with thin liquids. (6) Mixed hyperlipidemia: ASCVD:4.5%, no statin indicated. (7) Gastritis: Noted on EGD this year, started taking protonix and Carafate. Addition of zantac. Vital Signs: Vital Signs (72 hours) 08/26/19 19:45 08/26/19 21:28 08/26/19 21:58 Temperature 101.2 F H Pulse Rate 99 H Pulse Rate [Left Brachial] Pulse Rate [Right Brachial] Respiratory Rate 22 22 24 Blood Pressure 138/82 Blood Pressure [Left Arm] Blood Pressure [Right Arm] O2 Sat by Pulse Oximetry 100 08/26/19 23:08 08/26/19 23:38 08/27/19 00:53 Temperature Pulse Rate Pulse Rate [Left Brachial] 104 H Pulse Rate [Right Brachial] Respiratory Rate 20 22 22 Blood Pressure Blood Pressure [Left Arm] 129/85 Blood Pressure [Right Arm] O2 Sat by Pulse Oximetry 99 08/27/19 00:55 08/27/19 04:00 08/27/19 08:00 Temperature 99.0 F 97.9 F 97.8 F Pulse Rate Pulse Rate [Left Brachial] 95 H 86 81 Pulse Rate [Right Brachial] Respiratory Rate 20 18 18 Blood Pressure Blood Pressure [Left Arm] 143/61 111/59 129/75 Blood Pressure [Right Arm] O2 Sat by Pulse Oximetry 98 97 99 08/27/19 10:17 08/27/19 10:47 08/27/19 12:00 Temperature 98.0 F Pulse Rate Pulse Rate [Left Brachial] 66 Pulse Rate [Right Brachial] Respiratory Rate 20 20 18 Blood Pressure Blood Pressure [Left Arm] 102/58 Blood Pressure [Right Arm] O2 Sat by Pulse Oximetry 96 08/27/19 16:00 08/27/19 16:12 08/27/19 16:41 Temperature 97.7 F Pulse Rate Pulse Rate [Left Brachial] Pulse Rate [Right Brachial] 63 Respiratory Rate 18 20 18 Blood Pressure Blood Pressure [Left Arm] Blood Pressure [Right Arm] 130/74 O2 Sat by Pulse Oximetry 99 08/27/19 20:00 08/27/19 23:07 08/27/19 23:37 Temperature 98.2 F Pulse Rate Pulse Rate [Left Brachial] Pulse Rate [Right Brachial] 60 Respiratory Rate 20 20 20 Blood Pressure Blood Pressure [Left Arm] Blood Pressure [Right Arm] 119/75 O2 Sat by Pulse Oximetry 98 08/28/19 00:00 08/28/19 04:00 08/28/19 06:05 Temperature 97.7 F 97.8 F Pulse Rate Pulse Rate [Left Brachial] Pulse Rate [Right Brachial] 68 72 Respiratory Rate 20 20 18 Blood Pressure Blood Pressure [Left Arm] Blood Pressure [Right Arm] 145/80 111/68 O2 Sat by Pulse Oximetry 96 95 08/28/19 06:35 08/28/19 08:00 Temperature 98.2 F Pulse Rate Pulse Rate [Left Brachial] 66 Pulse Rate [Right Brachial] Respiratory Rate 18 18 Blood Pressure Blood Pressure [Left Arm] 114/62 Blood Pressure [Right Arm] O2 Sat by Pulse Oximetry 96 Labs: Laboratory Last Values WBC 5.4 X10^3/uL (3.6-10.0) 08/28/19 05:22 RBC 4.17 X10^6/uL (3.5-5.4) 08/28/19 05:22 Hgb 13.4 g/dL (12.0-16.0) 08/28/19 05:22 Hct 39.5 % (36.0-47.0) 08/28/19 05:22 MCV 94.8 fL (80.0-100.0) 08/28/19 05:22 MCH 32.1 pg (27.0-34.0) 08/28/19 05:22 MCHC 33.8 g/dL (33.0-35.0) 08/28/19 05:22 RDW 13.9 % (11.6-16.5) 08/28/19 05:22 Plt Count 236 X10^3/uL (150.0-450.0) 08/28/19 05:22 MPV 8.3 fL (7.4-11.0) 08/28/19 05:22 Neut % (Auto) 45.1 % (42.0-75.0) 08/28/19 05:22 Lymph % (Auto) 42.5 % (21.0-51.0) 08/28/19 05:22 [place] % (Auto) 8.6 % (0.0-13.0) 08/28/19 05:22 Eos % (Auto) 3.0 % (0.9-2.9) H 08/28/19 05:22 Baso % (Auto) 0.8 % (0.2-1.0) 08/28/19 05:22 Neut # (Auto) 2.4 x10^3/uL (2.2-4.8) 08/28/19 05:22 Lymph # (Auto) 2.3 X10^3/uL (1.3-2.9) 08/28/19 05:22 [place] # (Auto) 0.5 x10^3/uL (0.3-0.8) 08/28/19 05:22 Eos # (Auto) 0.2 x10^3/uL (0.0-0.2) 08/28/19 05:22 Baso # (Auto) 0.0 X10^3/uL (0.0-0.1) 08/28/19 05:22 Absolute Nucleated RBC 0.1 /100WBC 08/28/19 05:22 Sodium 142 mmol/L (136-145) 08/28/19 05:22 Corrected Sodium TNP 08/28/19 05:22 Potassium 4.0 mmol/L (3.5-5.1) 08/28/19 05:22 Chloride 109 mmol/L (98-107) H 08/28/19 05:22 Carbon Dioxide 21.8 mmol/L (21-32) 08/28/19 05:22 BUN 12 mg/dL (7-18) 08/28/19 05:22 Creatinine 0.93 mg/dL (0.55-1.02) 08/28/19 05:22 Est GFR (MDRD) Af Amer > 60 (>60) 08/28/19 05:22 Est GFR (MDRD) Non-Af > 60 (>60) 08/28/19 05:22 Glucose 85 mg/dL (65-99) 08/28/19 05:22 Lactic Acid 1.9 mmol/L (0.4-2.0) 08/26/19 22:50 Calcium 9.2 mg/dL (8.5-10.1) 08/28/19 05:22 Corrected Calcium TNP 08/27/19 07:25 Magnesium 2.1 mg/dL (1.7-2.9) 08/27/19 07:25 Total Bilirubin 0.40 mg/dL (0.2-1.0) 08/27/19 07:25 AST 21 Units/L (15-37) 08/27/19 07:25 ALT 27 Units/L (12-78) 08/27/19 07:25 Alkaline Phosphatase 65 Units/L (46-116) 08/27/19 07:25 Creatine Kinase 80 Units/L (26-192) 08/27/19 16:14 CK-MB (CK-2) < 1.0 ng/mL (0-4.0) 08/27/19 16:14 CK/CKMB % Calc 1.3 % (<4) 08/27/19 16:14 Troponin I < 0.02 ng/mL (0-1.5) 08/27/19 16:14 Total Protein 7.4 g/dL (6.4-8.2) 08/27/19 07:25 Albumin 3.6 g/dL (3.4-5.0) 08/27/19 07:25 Globulin 3.8 g/dL (2.5-4.5) 08/27/19 07:25 Albumin/Globulin Ratio 0.9 Ratio (1.1-2.1) L 08/27/19 07:25 Triglycerides 313 mg/dL (0-150) H 08/27/19 07:25 Cholesterol 245 mg/dL (0-200) H 08/27/19 07:25 LDL Cholesterol, Calc 151 mg/dL (0-100) H 08/27/19 07:25 HDL Cholesterol 31 mg/dL (40-60) L 08/27/19 07:25 Cholesterol/HDL Ratio 7.9 (0.0-5.0) H 08/27/19 07:25 Lipase 124 Units/L (73-393) 08/27/19 07:25 TSH 3rd Generation 5.163 uIU/mL (0.358-3.74) H 08/27/19 12:21 Specimen Type Clean catch urine 08/26/19 19:58 Urine Color Yellow (YELLOW) 08/26/19 19:58 Urine Appearance Clear (CLEAR) 08/26/19 19:58 Urine pH 5.0 (5.0 - 8.0) 08/26/19 19:58 Ur Specific [place] 1.025 (1.000-1.030) 08/26/19 19:58 Urine Protein 2+ (NEGATIVE) 08/26/19 19:58 Urine Glucose (UA) Negative (NEGATIVE) 08/26/19 19:58 Urine Ketones 2+ (NEGATIVE) 08/26/19 19:58 Urine Occult Blood 2+ (NEGATIVE) 08/26/19 19:58 Urine Nitrite Positive (NEGATIVE) 08/26/19 19:58 Urine Bilirubin Negative (NEGATIVE) 08/26/19 19:58 Urine Urobilinogen Normal (NORMAL) 08/26/19 19:58 Ur Leukocyte Esterase 2+ (NEGATIVE) 08/26/19 19:58 Urine RBC 5-10 /HPF (0-3) A 08/26/19 19:58 Urine WBC 30-50 /HPF (0-5) A 08/26/19 19:58 Ur Squamous Epith Cells Few /HPF (NEGATIVE) 08/26/19 19:58 Urine Bacteria 3+ /HPF (NEGATIVE) 08/26/19 19:58 Ur Culture Indicated? Yes/culture set up 08/26/19 19:58 Rheumatoid Factor Positive (NEGATIVE) A 08/27/19 12:21 Influenza Type A (PCR) Negative (NEGATIVE) 08/26/19 19:58 Influenza Type B (PCR) Negative (NEGATIVE) 08/26/19 19:58 S. pyogenes (TEM-PCR) Not detected (NOT DETECT) 08/26/19 19:58 Miscellaneous Test Cancelled 08/27/19 12:21 Reason For Visit: SEPSIS,UTI,NAUSEA Discharge Date Discharge Date: 08/28/19 Discharge Diagnosis All Active Problems (Updated 08/28/19 @ 14:03 by Fercho Francis) UTI (urinary tract infection) (Acute) Gastritis (Acute) Mixed hyperlipidemia (Chronic) Acute renal failure (ARF) (Acute) Dysphagia (Acute) Nondiabetic gastroparesis (Acute) Atrial flutter (Chronic) Abdominal pain (Acute) Sepsis (Acute) Cystitis (Acute) Nausea (Acute) Chest pain, atypical (Acute) Plan of Treatment: Continue with present treatment and follow up plan. Pt is to keep follow up appointment as instructed and take medications as ordered. Discharge Medications Discharge Medications: codeine Allergy (Verified 08/26/19 19:52) CONTINUE taking the following medications butalbital-acetaminophen [Bupap] 1 tab PO BID PRN 08/27/19 [History] Follow up and Referral Follow Up: 1 Week Discharge Disposition Discharge Disposition: Home
[2019-08-28 12:01] VITALS: BP 142/82
[2019-08-28] MEDS ORDERED: PREVNAR 13 IM ONE (14:20)
[2019-08-30 05:49] LABS: ANTI-NUCLEAR ANTIBODY TEST None Detected (None Detected)
[2019-09-02 06:50] LABS: SCL-70 ANTIBODY 1
== END 2019-08-28 15:30 | disposition home or self-care (01) ==
LOC: ER 19:43 → MED/SURG 22:52 → INTOOBSV 22:52 → OBS 22:53 → MED/SURG 08-27 00:54
PROVIDERS: ADMIT Family Medicine; ATTEND Family Medicine
DX: K31.84 Gastroparesis; I48.91 Unspecified atrial fibrillation; R10.32 Left lower quadrant pain; B96.1 Klebsiella pneumoniae [K. pneumoniae] as the cause of diseases classified elsewhere; E78.2 Mixed hyperlipidemia; Z23 Encounter for immunization; N30.00 Acute cystitis without hematuria; K21.9 Gastro-esophageal reflux disease without esophagitis; R07.89 Other chest pain; K29.70 Gastritis, unspecified, without bleeding; R94.31 Abnormal electrocardiogram [ECG] [EKG]; R13.11 Dysphagia, oral phase; I10 Essential (primary) hypertension; N17.8 Other acute kidney failure
CPT/HCPCS: 36415; 71020; 71046; 71250; 74176; 80048; 80053; 80061; 81001; 82164; 82550; 82553; 83605; 83690; 83735; 84443; 84484; 85025; 86038; 86200; 86225; 86235; 86308; 86430; 87040; 87086; 87088; 87186; 87502; 87651; 92610; 93005; 96365; 96374; 96375; 99284; A4222; 90670; G0378; J2060; J2175; J2270; J2405; J2543; J7030; J7050

== ENCOUNTER 2020-11-18 03:58 | Observation (INO) ==
[2020-11-18 04:13] VITALS: BMI 34.4
--- NOTE | 2020-11-18 04:38 | DR.SOBA ---
HPI Time Seen Time Seen by Provider: 11/18/20 04:19 Primary Care Physician Primary Care Physician: RAMYA HPI Comment HPI Comment: Persistent, worsening sob x this morning with cough, fever to 104, n/v/d x four days; currently on ivermectin and zpak for suspected covid although rapid test was neg and send off is pending; she feels "awful" with body aches and lane; no rash, sore throat, ear pain. Complaints Chief Complaint:: REPORTS SHORTNESS OF BREATH THIS AM - N/V/D SINCE MONDAY - TOOK RAPID COVID AND (-) - AWAITING SEND OFF Self Treatment fo Chief Complaint: IVERMECTIN, ZITHROMAX COVID-19 Coronavirus risk:travel/contact w/high risk person: No Has patient experienced Coronavirus symptoms: Yes Coronavirus symptoms experienced: Fever, Coughing and Shortness of Breath Source History Provided: Patient Mode of Arrival Mode of Arrival: Ambulatory Timing Onset of Chief Complaint: 11/18/20 PMH PMH Past Medical History: Yes Past Medical History: GERD and Hypertension Past Surgical History: Yes Surgical History: Appendectomy, Cholecystectomy, Hysterectomy and Ortho Surgery Family History History of Family Medical Conditions: Yes Family Medical History: Diabetes Mellitus, [place] and Hypertension Social History Does any household member use tobacco: No Alcohol Use: None Do you use any recreational Drugs:: No Lives With: Spouse Travel Risk Coronavirus risk:travel/contact w/high risk person: No Has patient experienced Coronavirus symptoms: Yes Coronavirus symptoms experienced: Fever, Coughing and Shortness of Breath Infectious screening Have you traveled outside the country in the last 6 months?: No Isolation: Droplet ROS Review of Systems Eyes: No Symptoms Reported ENTM: No Symptoms Reported Cardiovascular: No Symptoms Reported Genitourinary: No Symptoms Reported Neurological: No Symptoms Reported Integumentary: No Symptoms Reported Hematologic/Lymphatic: No Symptoms Reported Endocrine: No Symptoms Reported Psychiatric: No Symptoms Reported PE Vital Signs Vitals: Temperature 103 F Pulse Rate 128 Respiratory Rate 28 Blood Pressure [Right Arm] 111/68 Blood Pressure [Left Arm] 142/82 Blood Pressure 125/76 O2 Sat by Pulse Oximetry 93 General Limitations: No Limitations General Appearance: Other Head Head Exam: Normal Inspection Eyes Eye exam: Normal Appearance ENT ENT Exam: Normal Exam Neck Neck Exam: Normal Inspection Chest Chest Inspection: Normal Inspection Respiratory Respiratory Exam: Left: Rales, Right: Clear to Auscultation, Upper: Clear to Auscultation and Lower: Rales Cardiovascular Cardiovascular Exam: Regular Rate and Normal Rhythm Abdominal Exam Abdominal Exam: Normal Inspection, Normal Bowel Sounds and Soft Extremities Extremities Exam: Normal Inspection Back Back Exam: Normal Inspection Neurologic Neurological Exam: Alert and Oriented X3 Psychiatric Psychiatric Exam: Normal Affect and Normal Mood Skin Skin Exam: Warm, Dry, Intact and Normal Color COURSE Reevaluation 1st: Unchanged (remains thirsty and sob) Consultation Call Returned: 06:45 (Dr Alfonso accepts admission) ROR Labs Reviewed Laboratory Results Reviewed?: Yes Result Diagrams: 11/18/20 04:42 11/18/20 04:42 Laboratory: WBC 5.0 X10^3/uL (3.6-10.0) 11/18/20 04:42 RBC 4.33 X10^6/uL (3.5-5.4) 11/18/20 04:42 Hgb 13.8 g/dL (12.0-16.0) 11/18/20 04:42 Hct 40.9 % (36.0-47.0) 11/18/20 04:42 MCV 94.4 fL (80.0-100.0) 11/18/20 04:42 MCH 31.8 pg (27.0-34.0) 11/18/20 04:42 MCHC 33.7 g/dL (33.0-35.0) 11/18/20 04:42 RDW 13.3 % (11.6-16.5) 11/18/20 04:42 Plt Count 209 X10^3/uL (150.0-450.0) 11/18/20 04:42 MPV 8.2 fL (7.4-11.0) 11/18/20 04:42 Neut % (Auto) 85.3 % (42.0-75.0) H 11/18/20 04:42 Lymph % (Auto) 10.2 % (21.0-51.0) L 11/18/20 04:42 [place] % (Auto) 4.2 % (0.0-13.0) 11/18/20 04:42 Eos % (Auto) 0.0 % (0.9-2.9) L 11/18/20 04:42 Baso % (Auto) 0.3 % (0.2-1.0) 11/18/20 04:42 Neut # (Auto) 4.2 x10^3/uL (2.2-4.8) 11/18/20 04:42 Lymph # (Auto) 0.5 X10^3/uL (1.3-2.9) L 11/18/20 04:42 [place] # (Auto) 0.2 x10^3/uL (0.3-0.8) L 11/18/20 04:42 Eos # (Auto) 0.0 x10^3/uL (0.0-0.2) 11/18/20 04:42 Baso # (Auto) 0.0 X10^3/uL (0.0-0.1) 11/18/20 04:42 Absolute Nucleated RBC 0.1 /100WBC 11/18/20 04:42 Sample Site Lra 11/18/20 05:06 ABG pH 7.570 (7.35-7.45) H* 11/18/20 05:06 ABG pCO2 19.0 mmHg (35.0-45.0) L* 11/18/20 05:06 ABG pO2 60.0 mmHg (80.0-100.0) L 11/18/20 05:06 ABG HCO3 17.4 mmol/L (22-26) L* 11/18/20 05:06 ABG O2 Saturation 94.0 % (90-100) 11/18/20 05:06 ABG Base Excess -2.5 mmol/L (-2.0-2.0) L 11/18/20 05:06 Hussain Test Na 11/18/20 05:06 A-a Gradient 66.0 mmHg 11/18/20 05:06 FiO2 21.0 11/18/20 05:06 Blood Gas Comments Pt tariq well eb 11/18/20 05:06 Sodium 137 mmol/L (136-145) 11/18/20 04:42 Corrected Sodium 138 mmol/L (136-145) 11/18/20 04:42 Potassium 3.8 mmol/L (3.5-5.1) 11/18/20 04:42 Chloride 103 mmol/L (98-107) 11/18/20 04:42 Carbon Dioxide 18.5 mmol/L (21-32) L 11/18/20 04:42 BUN 22 mg/dL (7-18) H 11/18/20 04:42 Creatinine 1.26 mg/dL (0.55-1.02) H 11/18/20 04:42 Est GFR (MDRD) Af Amer 56 (>60) L 11/18/20 04:42 Est GFR (MDRD) Non-Af 47 (>60) L 11/18/20 04:42 Glucose 124 mg/dL (65-99) H 11/18/20 04:42 Lactic Acid 1.4 mmol/L (0.4-2.0) 11/18/20 04:42 Calcium 9.0 mg/dL (8.5-10.1) 11/18/20 04:42 Corrected Calcium TNP 11/18/20 04:42 Ferritin 737 ng/mL (8-252) H 11/18/20 04:42 Total Bilirubin 0.30 mg/dL (0.2-1.0) 11/18/20 04:42 AST 64 Units/L (15-37) H 11/18/20 04:42 ALT 46 Units/L (12-78) 11/18/20 04:42 Alkaline Phosphatase 51 Units/L (46-116) 11/18/20 04:42 Lactate Dehydrogenase 402 Units/L (81-234) H 11/18/20 04:42 Total Protein 8.4 g/dL (6.4-8.2) H 11/18/20 04:42 Albumin 3.4 g/dL (3.4-5.0) 11/18/20 04:42 Globulin 5.0 g/dL (2.5-4.5) H 11/18/20 04:42 Albumin/Globulin Ratio 0.7 Ratio (1.1-2.1) L 11/18/20 04:42 Influenza Type A (PCR) Negative (NEGATIVE) 11/18/20 04:49 Influenza Type B (PCR) Negative (NEGATIVE) 11/18/20 04:49 SARS CoV-2 RNA Rapid NEREYDA Positive (NEGATIVE) A 11/18/20 05:55 XRAY XRAY Interpreted by: Radiologist X-ray Results: PCXR: Bilateral pneumonia. Opioid Opioid Risk Tool Age (Porfirio box if 16-45): No History of Preadolescent Sexual Abuse: No Total: 0 Total Score Risk Category: Low Risk Copyright: Súal MORALES predicting aberrant behaviors Diagnosis Discharge Problem: Respiratory alkalosis, Metabolic acidosis, Hypoxia, COVID-19 Sepsis Qualifiers: Sepsis type: sepsis due to unspecified organism Sepsis acute organ dysfunction status: with acute organ dysfunction Severe sepsis acute organ dysfunction type: acute respiratory failure Acute respiratory failure type: with hypoxia Severe sepsis shock status: without septic shock Qualified Code(s): A41.9 - Sepsis, unspecified organism Bilateral pneumonia Qualifiers: Pneumonia type: due to unspecified organism Lung location: lower lobe of lung Qualified Code(s): J18.9 - Pneumonia, unspecified organism Instructions Instructions: Sepsis, Adult Forms: Precautions for COVID19 Patient Portal Social Distancing
[2020-11-18 04:51] LABS: BASOPHILS % (AUTO) 0.3 % (0.2-1.0); HEMATOCRIT 40.9 % (36.0-47.0); HEMOGLOBIN 13.8 g/dL (12.0-16.0); LYMPHOCYTES # (AUTO) 0.5 X10^3/uL (1.3-2.9); LYMPHOCYTES % (AUTO) 10.2 % (21.0-51.0); MEAN CORPUSCULAR HEMOGLOBIN 31.8 pg (27.0-34.0); MEAN CORPUSCULAR HGB CONC 33.7 g/dL (33.0-35.0); MEAN CORPUSCULAR VOLUME 94.4 fL (80.0-100.0); MEAN PLATELET VOLUME 8.2 fL (7.4-11.0); MONOCYTES # (AUTO) 0.2 x10^3/uL (0.3-0.8); MONOCYTES % (AUTO) 4.2 % (0.0-13.0); NEUTROPHILS # (AUTO) 4.2 x10^3/uL (2.2-4.8); NEUTROPHILS % (AUTO) 85.3 % (42.0-75.0); PLATELET COUNT 209 X10^3/uL (150.0-450.0); RED BLOOD COUNT 4.33 X10^6/uL (3.5-5.4); RED CELL DISTRIBUTION WIDTH 13.3 % (11.6-16.5)
[2020-11-18 05:01] LABS: ALANINE AMINOTRANSFERASE 46 Units/L (12-78); ALBUMIN 3.4 g/dL (3.4-5.0); ALKALINE PHOSPHATASE 51 Units/L (46-116); ASPARTATE AMINO TRANSFERASE 64 Units/L (15-37); BLOOD UREA NITROGEN 22 mg/dL (7-18); CARBON DIOXIDE 18.5 mmol/L (21-32); CHLORIDE 103 mmol/L (98-107); COR NA(FOR HYPERGLY) 138 mmol/L (136-145); CREATININE 1.26 mg/dL (0.55-1.02); LACTATE DEHYDROGENASE 402 Units/L (81-234); SODIUM 137 mmol/L (136-145); TOTAL PROTEIN 8.4 g/dL (6.4-8.2); eGFR NON BLACK RACES 47 (>60)
[2020-11-18 05:04] LABS: LACTIC ACID 1.4 mmol/L (0.4-2.0)
[2020-11-18 05:09] LABS: ABG BASE EXCESS -2.5 mmol/L (-2.0-2.0)
[2020-11-18 05:11] LABS: ABG HCO3 17.4 mmol/L (22-26)
--- NOTE | 2020-11-18 05:17 | RAD ---
PROCEDURE: Chest X-ray 1 View .HISTORY: Short of breath and cough.TECHNIQUE: AP view .COMPARISON: 08/27/2019.TECHNICAL QUALITY: Satisfactory .FINDINGS:Normal size heart .Mediastinum and hilar regions show no masses or lymphadenopathy .Normal central vascularity .Patchy consolidation lung bases greatest on the left consistent with mild pneumonia. No pleural fluid or pneumothorax.No acute bony abnormality .IMPRESSION:Bilateral pneumonia.Electronically signed by: Jhony Erazo (Nov 18, 2020 05:14:34)
[2020-11-18] MEDS ORDERED: NS 1000 ML 1,000 ML IV ONE (05:19)
[2020-11-18] MEDS ORDERED: ROCEPHIN VIAL 1 GRAM 1 G in NS 100 ML IV + SPIKE MINIBAG* 100 ML IV ONE (05:47)
[2020-11-18] MEDS ORDERED: NS 1000 ML 1,000 ML ONE ×2 (05:50→13:09)
[2020-11-18] MEDS ORDERED: ROCEPHIN 1 GRAM IV PREMIX 1 G/50 ML IV.SOLN. IV ONE (05:51)
[2020-11-18] MEDS ORDERED: REMDESIVIR 200 MG in NS 250 ML IV 250 ML IV ONE ×2 (06:30→06:58)
[2020-11-18] MEDS ORDERED: TESSALON PERLES PO PRN (06:30)
[2020-11-18] MEDS ORDERED: MAGIC MOUTHWASH MT PRN (06:30)
[2020-11-18] MEDS ORDERED: TUSSIONEX PENNKINETIC SUSP PO PRN ×2 (06:30→08:44)
[2020-11-18] MEDS ORDERED: ZOSYN VIAL 2.25 GRAMS 2.25 G in NS 100 ML IV + SPIKE MINIBAG* 100 ML IV SCH ×2 (06:35→07:04)
[2020-11-18] MEDS ORDERED: NS 1000 ML 1,000 ML IV SCH (07:00)
[2020-11-18] MEDS ORDERED: VITAMIN C PO SCH (09:00)
[2020-11-18] MEDS ORDERED: VITAMIN D3 125 mcg (5,000 UNITS) PO SCH (09:00)
[2020-11-18] MEDS ORDERED: DECADRON TAB PO SCH (09:00)
[2020-11-18] MEDS ORDERED: ZINC SULFATE PO SCH (09:00)
[2020-11-18] MEDS ORDERED: PEPCID 20 MG IV PREMIX* 20 MG/50 ML BAG IV SCH (09:00)
[2020-11-18] MEDS: ASCORBIC ACID INJ MULTI-DOSE VIAL 1,500 MG in NS 50 ML IV 50 ML IV SCH ×3 (09:39→21:12)
[2020-11-18] MEDS: DECADRON TAB PO SCH (09:40)
[2020-11-18] MEDS: NS 1/2 1000 ML IV 1,000 ML IV SCH ×2 (09:40→21:28)
[2020-11-18] MEDS: LOPRESSOR TAB 25 MG PO SCH ×2 (09:41→21:13)
[2020-11-18] MEDS: MELATONIN PO SCH (09:42)
[2020-11-18] MEDS: ZINC SULFATE PO SCH (09:42)
[2020-11-18] MEDS ORDERED: ZOFRAN INJ 4 MG VIAL ONE ×2 (09:53→10:22)
[2020-11-18] MEDS: PULMICORT NEB TX 0.5 MG NEB SCH ×2 (09:58→20:30)
[2020-11-18] MEDS: ZOFRAN INJ 4 MG VIAL IVP PRN ×2 (10:02→14:56)
[2020-11-18] MEDS ORDERED: TYLENOL 325 MG TAB PO ONE ×2 (10:20→23:52)
[2020-11-18] MEDS ORDERED: LOPRESSOR TAB 50 MG ONE ×2 (10:20→19:53)
[2020-11-18] MEDS ORDERED: REMDESIVIR IV ONE (10:21)
[2020-11-18] MEDS ORDERED: LOVENOX INJ 30 MG SYR SC ONE ×2 (10:21→19:54)
[2020-11-18] MEDS ORDERED: DECADRON TAB ONE (10:21)
[2020-11-18] MEDS ORDERED: ZINC SULFATE ONE (10:21)
[2020-11-18] MEDS ORDERED: ZITHROMAX INJ 500 MG VIAL IV ONE (10:22)
[2020-11-18] MEDS ORDERED: NS 250 ML IV 250 ML IV ONE (10:22)
[2020-11-18] MEDS ORDERED: NS 50 ML IV 50 ML IV ONE ×2 (10:22→15:52)
[2020-11-18] MEDS ORDERED: NS 100 ML IV 100 ML IV ONE ×2 (10:22→19:54)
[2020-11-18] MEDS ORDERED: ASCORBIC ACID INJ MULTI-DOSE VIAL IV ONE ×2 (10:23→15:54)
--- NOTE | 2020-11-18 13:08 | DR.H&P ---
H&P History & Physical for Day of: H&P Date: 11/18/20 Chief Complaint Chief Complaint: fever, cough, weakness Allergies Allergies Allergy/AdvReac Type Severity Reaction Status Date / Time codeine Allergy Verified 08/26/19 19:52 gabapentin Allergy Verified 11/18/20 04:13 History of Present Illness History of Present Illness: Ms. Olivarez is a 55y/o female with a PMH of Atrial fibrillation, HTN and GERD presented with worsening cough, body aches, fever and generalized weakness. She also reports headache, nausea and diarrhea. She states she was recently diagnosed with a lesion in the brain, saw Oncologist in [place] and was suppose to have further tests. She is not on any chemotherapy or radiation. She states she has been sick since . She has been having fever, Tmax 102-103 for the past few days. She had a rapid test done few days ago which was negative. She had PCR sent out which she has not gotten results yet. She was being treated with z-pack and ivermectin. Labs: WBC 5 Hgb 13.8 Plt 209 Na: 138 K: 3.8 BUN/Cr: 22/1.26 CO2: 18.5 Lacic acid 1.4 ABG 7.57///17 on RA CXR: suggestive of bilateral pneumonia Patient received decadron, IV abx and Remdesivir in the ED. Patient is currently on room air. Plan: continue decadron, Zosyn/Azithromycin and Remdesivir. Add anti-emetics. Continue gentle hydration. Add Lovenox for DVT ppx. Resume home medications. Continue immune support with vitamins. Monitor resp status. Monitor AM labs and imaging. Time spent for clinical assessment, physical examination, reviewing labs/im aging, decision making and documentation greater than 75 mins. Past Medical History Past Medical History: GERD and Hypertension Past Surgical History Surgical History: Appendectomy, Cholecystectomy, Hysterectomy and Ortho Surgery Family History Family Medical History: Diabetes Mellitus, [place] and Hypertension Social History Does any household member use tobacco: No Alcohol Use: None Medications Home Medications: codeine Allergy (Verified 08/26/19 19:52) gabapentin Allergy (Verified 11/18/20 04:13) Labs Result Diagrams: 11/18/20 04:42 11/18/20 04:42 Labs: Laboratory WBC 5.0 X10^3/uL (3.6-10.0) 11/18/20 04:42 RBC 4.33 X10^6/uL (3.5-5.4) 11/18/20 04:42 Hgb 13.8 g/dL (12.0-16.0) 11/18/20 04:42 Hct 40.9 % (36.0-47.0) 11/18/20 04:42 MCV 94.4 fL (80.0-100.0) 11/18/20 04:42 MCH 31.8 pg (27.0-34.0) 11/18/20 04:42 MCHC 33.7 g/dL (33.0-35.0) 11/18/20 04:42 RDW 13.3 % (11.6-16.5) 11/18/20 04:42 Plt Count 209 X10^3/uL (150.0-450.0) 11/18/20 04:42 MPV 8.2 fL (7.4-11.0) 11/18/20 04:42 Neut % (Auto) 85.3 % (42.0-75.0) H 11/18/20 04:42 Lymph % (Auto) 10.2 % (21.0-51.0) L 11/18/20 04:42 [place] % (Auto) 4.2 % (0.0-13.0) 11/18/20 04:42 Eos % (Auto) 0.0 % (0.9-2.9) L 11/18/20 04:42 Baso % (Auto) 0.3 % (0.2-1.0) 11/18/20 04:42 Neut # (Auto) 4.2 x10^3/uL (2.2-4.8) 11/18/20 04:42 Lymph # (Auto) 0.5 X10^3/uL (1.3-2.9) L 11/18/20 04:42 [place] # (Auto) 0.2 x10^3/uL (0.3-0.8) L 11/18/20 04:42 Eos # (Auto) 0.0 x10^3/uL (0.0-0.2) 11/18/20 04:42 Baso # (Auto) 0.0 X10^3/uL (0.0-0.1) 11/18/20 04:42 Absolute Nucleated RBC 0.1 /100WBC 11/18/20 04:42 Sample Site Lra 11/18/20 05:06 ABG pH 7.570 (7.35-7.45) H* 11/18/20 05:06 ABG pCO2 19.0 mmHg (35.0-45.0) L* 11/18/20 05:06 ABG pO2 60.0 mmHg (80.0-100.0) L 11/18/20 05:06 ABG HCO3 17.4 mmol/L (22-26) L* 11/18/20 05:06 ABG O2 Saturation 94.0 % (90-100) 11/18/20 05:06 ABG Base Excess -2.5 mmol/L (-2.0-2.0) L 11/18/20 05:06 Hussain Test Na 11/18/20 05:06 A-a Gradient 66.0 mmHg 11/18/20 05:06 FiO2 21.0 11/18/20 05:06 Blood Gas Comments Pt tariq well eb 11/18/20 05:06 Sodium 137 mmol/L (136-145) 11/18/20 04:42 Corrected Sodium 138 mmol/L (136-145) 11/18/20 04:42 Potassium 3.8 mmol/L (3.5-5.1) 11/18/20 04:42 Chloride 103 mmol/L (98-107) 11/18/20 04:42 Carbon Dioxide 18.5 mmol/L (21-32) L 11/18/20 04:42 BUN 22 mg/dL (7-18) H 11/18/20 04:42 Creatinine 1.26 mg/dL (0.55-1.02) H 11/18/20 04:42 Est GFR (MDRD) Af Amer 56 (>60) L 11/18/20 04:42 Est GFR (MDRD) Non-Af 47 (>60) L 11/18/20 04:42 Glucose 124 mg/dL (65-99) H 11/18/20 04:42 Lactic Acid 1.4 mmol/L (0.4-2.0) 11/18/20 04:42 Calcium 9.0 mg/dL (8.5-10.1) 11/18/20 04:42 Corrected Calcium TNP 11/18/20 04:42 Ferritin 737 ng/mL (8-252) H 11/18/20 04:42 Total Bilirubin 0.30 mg/dL (0.2-1.0) 11/18/20 04:42 AST 64 Units/L (15-37) H 11/18/20 04:42 ALT 46 Units/L (12-78) 11/18/20 04:42 Alkaline Phosphatase 51 Units/L (46-116) 11/18/20 04:42 Lactate Dehydrogenase 402 Units/L (81-234) H 11/18/20 04:42 Total Protein 8.4 g/dL (6.4-8.2) H 11/18/20 04:42 Albumin 3.4 g/dL (3.4-5.0) 11/18/20 04:42 Globulin 5.0 g/dL (2.5-4.5) H 11/18/20 04:42 Albumin/Globulin Ratio 0.7 Ratio (1.1-2.1) L 11/18/20 04:42 Influenza Type A (PCR) Negative (NEGATIVE) 11/18/20 04:49 Influenza Type B (PCR) Negative (NEGATIVE) 11/18/20 04:49 SARS CoV-2 RNA Rapid NEREYDA Positive (NEGATIVE) A 11/18/20 05:55 Review of Systems Constitutional: Fever, Weakness and Malaise Eyes: No Symptoms Reported ENT: No Symptoms Reported Respiratory: Cough, Dry and SOB with Excertion Cardiovascular: No Symptoms Reported Gastrointestinal: Nausea and Diarrhea Genitourinary: No Symptoms Reported Musculoskeletal: No Symptoms Reported Skin: No Symptoms Reported Neurological: Other (headache ) Physical Exam Vital Signs: Temperature 103 F Pulse Rate 128 Respiratory Rate 28 Blood Pressure [Right Arm] 111/68 Blood Pressure [Left Arm] 142/82 Blood Pressure 125/76 O2 Sat by Pulse Oximetry 93 Oriented: Normal Eyes: Normal Ear: Normal Nose: Normal Throat: Normal Respiratory: Diminished Throughout and Rhonchi Throughout Cardiovascular: Normal Auscultation: Bowel Sounds: Normal Palpation: Normal Tenderness: Normal Skin: Normal Musculoskeletal: Normal Psychiatric: Anxiety Mood Description: Anxious Affect: Anxious Speech Pattern: Clear and Appropriate Assessment/Plan (1) Respiratory alkalosis: Status: Acute (2) Metabolic acidosis: Status: Acute (3) COVID-19: Status: Acute (4) Bilateral pneumonia: Qualifiers: Lung location: lower lobe of lung Pneumonia type: due to unspecified organism Qualified Code(s): J18.9 - Pneumonia, unspecified organism Status: Acute (5) GI symptoms: Status: Acute (6) HTN (hypertension): Qualifiers: Hypertension type: essential hypertension Qualified Code(s): I10 - Essential (primary) hypertension Status: Acute Review H&P Reviewed: Yes Patient was examined?: Yes
[2020-11-18] MEDS: ZITHROMAX INJ 500 MG VIAL 500 MG in NS 250 ML IV 250 ML IV SCH (14:37)
[2020-11-18] MEDS: TYLENOL 325 MG TAB PO ONE ×2 (14:39→14:44)
[2020-11-18] MEDS: LOVENOX INJ 30 MG SYR SC SCH ×2 (14:41→21:27)
[2020-11-18] MEDS: ZOSYN VIAL 2.25 GRAMS 3.375 G in NS 100 ML IV + SPIKE MINIBAG* 100 ML IV SCH ×2 (15:18→21:14)
[2020-11-18] MEDS ORDERED: PROTONIX TAB 40 MG PO ONE (19:52)
[2020-11-18] MEDS ORDERED: TUSSIONEX PENNKINETIC SUSP ONE (19:53)
[2020-11-18] MEDS ORDERED: TESSALON PERLES PO ONE (19:53)
[2020-11-18] MEDS: XOPENEX 1.25 MG/3 ML NEBULE NEB PRN (20:30)
[2020-11-18] MEDS: PROTONIX TAB 40 MG PO SCH (20:40)
[2020-11-18] MEDS ORDERED: TYLENOL 325 MG TAB PO PRN (23:50)
[2020-11-19] MEDS ORDERED: NS 100 ML IV 100 ML IV ONE ×2 (00:38→19:30)
[2020-11-19] MEDS ORDERED: ASCORBIC ACID INJ MULTI-DOSE VIAL IV ONE ×5 (00:38→19:30)
[2020-11-19] MEDS ORDERED: MOTRIN TAB 800 MG PO PRN (01:36)
[2020-11-19] MEDS ORDERED: MOTRIN TAB 800 MG PO ONE (01:38)
[2020-11-19] MEDS: ASCORBIC ACID INJ MULTI-DOSE VIAL 1,500 MG in NS 50 ML IV 50 ML IV SCH ×4 (02:29→20:43)
[2020-11-19] MEDS ORDERED: ZOSYN VIAL 3.375 GRAMS IV ONE ×2 (04:28→19:30)
[2020-11-19] MEDS ORDERED: NS 100 ML IV + SPIKE MINIBAG* 100 ML IV ONE ×2 (04:28→19:30)
[2020-11-19] MEDS ORDERED: ZITHROMAX INJ 500 MG VIAL IV ONE (04:28)
[2020-11-19] MEDS ORDERED: NS 250 ML IV 250 ML IV ONE ×3 (04:29→08:59)
[2020-11-19] MEDS: ZOSYN VIAL 2.25 GRAMS 3.375 G in NS 100 ML IV + SPIKE MINIBAG* 100 ML IV SCH ×3 (05:36→21:00)
[2020-11-19] MEDS: ZITHROMAX INJ 500 MG VIAL 500 MG in NS 250 ML IV 250 ML IV SCH (05:36)
--- NOTE | 2020-11-19 05:36 | RAD ---
PROCEDURE: Chest X-ray 1 View .HISTORY: COVID PNEUMONIA .TECHNIQUE: AP view .COMPARISON: 11/18/2020.TECHNICAL QUALITY: Satisfactory .FINDINGS:Normal cardio mediastinal silhouette.Normal central vascularity.Unchanged to slightly increased patchy consolidation lung bases with no pleural fluid or pneumothorax.IMPRESSION:Unchanged increased pneumonia bilaterally.Electronically signed by: Jhony Erazo (Nov 19, 2020 05:33:50)
[2020-11-19 06:36] LABS: BASOPHILS % (AUTO) 0.2 % (0.2-1.0); EOSINOPHILS % (AUTO) 0.1 % (0.9-2.9); HEMATOCRIT 34.9 % (36.0-47.0); LYMPHOCYTES % (AUTO) 15.2 % (21.0-51.0); MEAN CORPUSCULAR HEMOGLOBIN 32.6 pg (27.0-34.0); MEAN CORPUSCULAR HGB CONC 34.5 g/dL (33.0-35.0); MEAN CORPUSCULAR VOLUME 94.6 fL (80.0-100.0); MEAN PLATELET VOLUME 8.6 fL (7.4-11.0); MONOCYTES # (AUTO) 0.2 x10^3/uL (0.3-0.8); MONOCYTES % (AUTO) 2.6 % (0.0-13.0); NEUTROPHILS # (AUTO) 5.3 x10^3/uL (2.2-4.8); NEUTROPHILS % (AUTO) 81.9 % (42.0-75.0); PLATELET COUNT 190 X10^3/uL (150.0-450.0); RED BLOOD COUNT 3.69 X10^6/uL (3.5-5.4); RED CELL DISTRIBUTION WIDTH 13.7 % (11.6-16.5); WHITE BLOOD COUNT 6.5 X10^3/uL (3.6-10.0)
[2020-11-19 07:05] LABS: ALANINE AMINOTRANSFERASE 48 Units/L (12-78); ALBUMIN 2.6 g/dL (3.4-5.0); ALKALINE PHOSPHATASE 41 Units/L (46-116); ASPARTATE AMINO TRANSFERASE 80 Units/L (15-37); BLOOD UREA NITROGEN 21 mg/dL (7-18); CALCIUM 8.1 mg/dL (8.5-10.1); CARBON DIOXIDE 19.4 mmol/L (21-32); CHLORIDE 106 mmol/L (98-107); COR CA(FOR HYPOALB) 9.2 mg/dL (8.5-10.1); SODIUM 140 mmol/L (136-145); TOTAL PROTEIN 7.1 g/dL (6.4-8.2); eGFR NON BLACK RACES 54 (>60)
[2020-11-19] MEDS: PULMICORT NEB TX 0.5 MG NEB SCH ×2 (08:35→20:55)
[2020-11-19] MEDS: XOPENEX 1.25 MG/3 ML NEBULE NEB PRN ×2 (08:35→20:55)
[2020-11-19] MEDS ORDERED: DECADRON TAB ONE (08:38)
[2020-11-19] MEDS ORDERED: LOPRESSOR TAB 50 MG ONE ×2 (08:38→19:30)
[2020-11-19] MEDS ORDERED: LOVENOX INJ 30 MG SYR SC ONE ×2 (08:39→19:30)
[2020-11-19] MEDS ORDERED: REMDESIVIR IV ONE ×2 (08:39→08:59)
[2020-11-19] MEDS ORDERED: NS 50 ML IV 50 ML IV ONE ×2 (08:40→14:13)
[2020-11-19] MEDS: DECADRON TAB PO SCH (08:46)
[2020-11-19] MEDS: LOPRESSOR TAB 25 MG PO SCH ×2 (08:46→20:45)
[2020-11-19] MEDS: LOVENOX INJ 30 MG SYR SC SCH ×2 (08:47→20:44)
[2020-11-19] MEDS: MELATONIN PO SCH (08:47)
[2020-11-19] MEDS: ZINC SULFATE PO SCH (08:49)
[2020-11-19] MEDS: REMDESIVIR 100 MG in NS 250 ML IV 250 ML IV SCH (08:49)
[2020-11-19] MEDS ORDERED: PROTONIX TAB 40 MG PO ONE ×2 (08:58→19:30)
[2020-11-19] MEDS ORDERED: LOVENOX INJ 100 MG SYR SC ONE (08:58)
[2020-11-19] MEDS ORDERED: PEPCID TAB 20 MG ONE (08:58)
[2020-11-19] MEDS ORDERED: THIAMINE HCL INJ ONE (08:58)
[2020-11-19] MEDS ORDERED: ZyrTEC TAB 10 MG ONE (08:58)
[2020-11-19] MEDS ORDERED: LEVAQUIN PREMIX IV 500 MG 500 MG/100 ML BAG IV ONE (08:59)
[2020-11-19] MEDS ORDERED: MILK OF MAGNESIA ONE (08:59)
[2020-11-19] MEDS ORDERED: ROBITUSSIN DM ONE (08:59)
[2020-11-19] MEDS ORDERED: REMDESIVIR 100 MG in NS 250 ML IV 250 ML IV SCH (09:00)
[2020-11-19] MEDS ORDERED: NS 1000 ML 1,000 ML ONE (10:28)
[2020-11-19] MEDS: NS 1/2 1000 ML IV 1,000 ML IV SCH ×2 (14:06→22:43)
[2020-11-19] MEDS ORDERED: XANAX ONE (15:02)
[2020-11-19] MEDS ORDERED: XANAX PO PRN (15:05)
[2020-11-19] MEDS ORDERED: XOPENEX 1.25 MG/3 ML NEBULE NEB ONE (20:30)
[2020-11-19] MEDS: PROTONIX TAB 40 MG PO SCH (20:45)
[2020-11-19] MEDS ORDERED: KLOR-CON PO PRN (22:41)
[2020-11-19] MEDS ORDERED: POTASSIUM CHLORIDE LIQ 20 MEQ UDC PO PRN (22:41)
[2020-11-19] MEDS ORDERED: K-DUR TAB 20 MEQ PO PRN (22:41)
[2020-11-19] MEDS ORDERED: POTASSIUM CHL 60 MEQ/NS 0.45% 500 ML IV PRN (22:41)
[2020-11-19] MEDS ORDERED: K-RIDER 10 MEQ/NS 100 ML 10 MEQ/100 ML BAG IV PRN (22:41)
[2020-11-19] MEDS ORDERED: POTASSIUM CHL 40 MEQ/NS 0.45% 500 ML IV PRN (22:41)
[2020-11-19] MEDS ORDERED: MICRO K EXTEN CAP 10 MEQ PO PRN (22:41)
[2020-11-20] MEDS: ASCORBIC ACID INJ MULTI-DOSE VIAL 1,500 MG in NS 50 ML IV 50 ML IV SCH ×2 (02:58→09:51)
[2020-11-20 05:30] LABS: BASOPHILS % (AUTO) 0.4 % (0.2-1.0); EOSINOPHILS % (AUTO) 0.2 % (0.9-2.9); HEMOGLOBIN 11.4 g/dL (12.0-16.0); LYMPHOCYTES # (AUTO) 1.1 X10^3/uL (1.3-2.9); LYMPHOCYTES % (AUTO) 20.2 % (21.0-51.0); MEAN CORPUSCULAR HGB CONC 33.6 g/dL (33.0-35.0); MEAN CORPUSCULAR VOLUME 95.2 fL (80.0-100.0); MEAN PLATELET VOLUME 8.6 fL (7.4-11.0); MONOCYTES # (AUTO) 0.2 x10^3/uL (0.3-0.8); MONOCYTES % (AUTO) 3.1 % (0.0-13.0); NEUTROPHILS % (AUTO) 76.1 % (42.0-75.0); PLATELET COUNT 228 X10^3/uL (150.0-450.0); RED BLOOD COUNT 3.57 X10^6/uL (3.5-5.4); RED CELL DISTRIBUTION WIDTH 13.5 % (11.6-16.5); WHITE BLOOD COUNT 5.3 X10^3/uL (3.6-10.0)
[2020-11-20 05:39] LABS: ALANINE AMINOTRANSFERASE 51 Units/L (12-78); ALBUMIN 2.5 g/dL (3.4-5.0); ALKALINE PHOSPHATASE 37 Units/L (46-116); ASPARTATE AMINO TRANSFERASE 64 Units/L (15-37); BLOOD UREA NITROGEN 18 mg/dL (7-18); CALCIUM 8.7 mg/dL (8.5-10.1); CARBON DIOXIDE 20.1 mmol/L (21-32); CHLORIDE 108 mmol/L (98-107); COR CA(FOR HYPOALB) 9.9 mg/dL (8.5-10.1); CREATININE 0.85 mg/dL (0.55-1.02); SODIUM 141 mmol/L (136-145); TOTAL PROTEIN 6.7 g/dL (6.4-8.2); eGFR NON BLACK RACES > 60 (>60)
[2020-11-20] MEDS: ZITHROMAX INJ 500 MG VIAL 500 MG in NS 250 ML IV 250 ML IV SCH (05:40)
[2020-11-20] MEDS: ZOSYN VIAL 2.25 GRAMS 3.375 G in NS 100 ML IV + SPIKE MINIBAG* 100 ML IV SCH (05:41)
[2020-11-20 05:50] LABS: ABG ALLEN TEST POS; ABG BASE EXCESS -1.5 mmol/L (-2.0-2.0); ABG HCO3 20.9 mmol/L (22-26)
--- NOTE | 2020-11-20 06:51 | CT ---
HISTORYHEADACHE, SEPSISSTUDYBRAIN W/O CONCOMPARISONNone.TECHNIQUEMultiple axial images of the head were performed from the skullbase to the vertex using standard departmental protocol. Sagittal and coronal reformatted images were performed. Dose reduction techniques including Automated Exposure Control (AEC) and adjustment of mA and kV were utilized.FINDINGSThe lateral ventricles and basilar cisterns are patent.No parenchymal mass or hematoma. Vazquez-white differentiation appears acutely preserved.No extra-axial collection.The globes are intact.The paranasal sinuses and mastoid air cells are clear.The calvarium is intact.IMPRESSIONNo acute intracranial abnormality.Electronically signed by: Skyler Richardson (Nov 20, 2020 06:50:30)
[2020-11-20] MEDS ORDERED: IMODIUM CAP 2 MG PO NR (08:36)
[2020-11-20] MEDS ORDERED: VITAMIN A PO SCH (09:00)
[2020-11-20] MEDS ORDERED: VITAMIN D3 125 mcg (5,000 UNITS) PO SCH (09:00)
--- NOTE | 2020-11-20 09:42 | PCM.PROG ---
Progress Note Progress Note for Day of Date of Exam: 11/19/20 Subjective Subjective: Patient seen at bedside, no overnight events. Patient states she still has severe headache, nausea and diarrhea. She was not able to eat much yesterday. She states she can tolerate liquids. She had a fever, Tmax 103.3. She reports chills and dry cough. Her SBP was slightly low in the 80-90s. Labs: BUN/Cr 21/1.10 Hgb 12 WBC 6.5 CXR: patchy consolidation, slight worsening Plan: due to patient's hx of brain lesion, will get a CT-head to eval further, check stool studies, C.diff, increase IVF. Continue Decadron, Remdesivir and IV abx. Patient remains on room air. Continue bronchodilators and vitamin support. Continue anti-emetics. Monitor resp status closely. Past Medical Family Social History Past Med/Fam/Surg Hx: No changes since H&P Allergies: Allergies codeine Allergy (Verified 08/26/19 19:52) gabapentin Allergy (Verified 11/18/20 04:13) Review of Systems ROS: No change since H&P Vital Signs and I&O's Vital Signs: Temperature 98.7 F Pulse Rate [Apical] 84 Pulse Rate 77 Respiratory Rate 20 Blood Pressure [Right Arm] 117/86 Blood Pressure [Left Arm] 96/51 Blood Pressure 125/76 O2 Sat by Pulse Oximetry 93 Intake and Output: Intake & Output 11/17/20 11/18/20 11/19/20 11/20/20 23:59 23:59 23:59 23:59 Intake Total 2371 / 2371 3513 / 3513 1120 / 1120 Output Total 600 / 600 2 / 2 2 / 2 Balance 1771 / 1771 3511 / 3511 1118 / 1118 Physical Exam Oriented: Normal Eyes: Normal Ear: Normal Nose: Normal Throat: Normal Respiratory: Generalized and Diminished Cardiovascular: Normal Auscultation: Bowel Sounds: Normal Tenderness: Normal Skin: Normal Musculoskeletal: Normal Psychiatric: Anxiety Mood Description: Anxious Affect: Anxious Speech Pattern: Clear and Appropriate Laboratory and Diagnostics Result Diagrams: 11/20/20 04:35 11/20/20 04:35 Labs: 11/18/20 06:15 Blood Blood Culture - Preliminary 11/18/20 04:42 Blood Blood Culture - Preliminary 11/19/20 14:47 Stool Stool Culture - Preliminary 11/19/20 14:47 Stool - Final Laboratory WBC 5.3 X10^3/uL (3.6-10.0) 11/20/20 04:35 RBC 3.57 X10^6/uL (3.5-5.4) 11/20/20 04:35 Hgb 11.4 g/dL (12.0-16.0) L 11/20/20 04:35 Hct 34.0 % (36.0-47.0) L 11/20/20 04:35 MCV 95.2 fL (80.0-100.0) 11/20/20 04:35 MCH 32.0 pg (27.0-34.0) 11/20/20 04:35 MCHC 33.6 g/dL (33.0-35.0) 11/20/20 04:35 RDW 13.5 % (11.6-16.5) 11/20/20 04:35 Plt Count 228 X10^3/uL (150.0-450.0) 11/20/20 04:35 MPV 8.6 fL (7.4-11.0) 11/20/20 04:35 Neut % (Auto) 76.1 % (42.0-75.0) H 11/20/20 04:35 Lymph % (Auto) 20.2 % (21.0-51.0) L 11/20/20 04:35 [place] % (Auto) 3.1 % (0.0-13.0) 11/20/20 04:35 Eos % (Auto) 0.2 % (0.9-2.9) L 11/20/20 04:35 Baso % (Auto) 0.4 % (0.2-1.0) 11/20/20 04:35 Neut # (Auto) 4.0 x10^3/uL (2.2-4.8) 11/20/20 04:35 Lymph # (Auto) 1.1 X10^3/uL (1.3-2.9) L 11/20/20 04:35 [place] # (Auto) 0.2 x10^3/uL (0.3-0.8) L 11/20/20 04:35 Eos # (Auto) 0.0 x10^3/uL (0.0-0.2) 11/20/20 04:35 Baso # (Auto) 0.0 X10^3/uL (0.0-0.1) 11/20/20 04:35 Absolute Nucleated RBC 0.1 /100WBC 11/20/20 04:35 Sample Site Lrad 11/20/20 05:48 ABG pH 7.480 (7.35-7.45) H 11/20/20 05:48 ABG pCO2 28.0 mmHg (35.0-45.0) L 11/20/20 05:48 ABG pO2 63.0 mmHg (80.0-100.0) L 11/20/20 05:48 ABG HCO3 20.9 mmol/L (22-26) L 11/20/20 05:48 ABG O2 Saturation 93.0 % (90-100) 11/20/20 05:48 ABG Base Excess -1.5 mmol/L (-2.0-2.0) 11/20/20 05:48 Hussain Test Pos 11/20/20 05:48 A-a Gradient 52.0 mmHg 11/20/20 05:48 FiO2 21.0 11/20/20 05:48 Blood Gas Comments Alex abg well-mtf 11/20/20 05:48 Sodium 141 mmol/L (136-145) 11/20/20 04:35 Corrected Sodium TNP 11/20/20 04:35 Potassium 3.6 mmol/L (3.5-5.1) 11/20/20 04:35 Chloride 108 mmol/L (98-107) H 11/20/20 04:35 Carbon Dioxide 20.1 mmol/L (21-32) L 11/20/20 04:35 BUN 18 mg/dL (7-18) 11/20/20 04:35 Creatinine 0.85 mg/dL (0.55-1.02) 11/20/20 04:35 Est GFR (MDRD) Af Amer > 60 (>60) 11/20/20 04:35 Est GFR (MDRD) Non-Af > 60 (>60) 11/20/20 04:35 Glucose 108 mg/dL (65-99) H 11/20/20 04:35 Lactic Acid 1.4 mmol/L (0.4-2.0) 11/18/20 04:42 Calcium 8.7 mg/dL (8.5-10.1) 11/20/20 04:35 Corrected Calcium 9.9 mg/dL (8.5-10.1) 11/20/20 04:35 Magnesium 2.0 mg/dL (1.7-2.9) 11/19/20 05:39 Ferritin 737 ng/mL (8-252) H 11/18/20 04:42 Total Bilirubin 0.20 mg/dL (0.2-1.0) 11/20/20 04:35 AST 64 Units/L (15-37) H 11/20/20 04:35 ALT 51 Units/L (12-78) 11/20/20 04:35 Alkaline Phosphatase 37 Units/L (46-116) L 11/20/20 04:35 Lactate Dehydrogenase 402 Units/L (81-234) H 11/18/20 04:42 C-Reactive Protein 96.70 mg/L (0-3.0) H 11/20/20 04:35 Total Protein 6.7 g/dL (6.4-8.2) 11/20/20 04:35 Albumin 2.5 g/dL (3.4-5.0) L 11/20/20 04:35 Globulin 4.2 g/dL (2.5-4.5) 11/20/20 04:35 Albumin/Globulin Ratio 0.6 Ratio (1.1-2.1) L 11/20/20 04:35 Stl C. diff Tox B Gene Negative (NEGATIVE) 11/19/20 14:47 Stl C. diff [id number] Negative (NEGATIVE) 11/19/20 14:47 Influenza Type A (PCR) Negative (NEGATIVE) 11/18/20 04:49 Influenza Type B (PCR) Negative (NEGATIVE) 11/18/20 04:49 SARS CoV-2 RNA Rapid NEREYDA Positive (NEGATIVE) A 11/18/20 05:55 Plan (1) Respiratory alkalosis: Status: Acute (2) Metabolic acidosis: Status: Acute (3) COVID-19: Status: Acute (4) Bilateral pneumonia: Status: Acute Qualifiers: Lung location: lower lobe of lung Pneumonia type: due to unspecified organism Qualified Code(s): J18.9 - Pneumonia, unspecified organism (5) GI symptoms: Status: Acute (6) HTN (hypertension): Status: Acute Qualifiers: Hypertension type: essential hypertension Qualified Code(s): I10 - Essential (primary) hypertension
[2020-11-20] MEDS: DECADRON TAB PO SCH (09:51)
[2020-11-20] MEDS: LOVENOX INJ 30 MG SYR SC SCH (09:52)
[2020-11-20] MEDS: MELATONIN PO SCH (09:52)
[2020-11-20] MEDS: LOPRESSOR TAB 25 MG PO SCH (09:52)
[2020-11-20] MEDS: REMDESIVIR 100 MG in NS 250 ML IV 250 ML IV SCH (09:53)
[2020-11-20] MEDS: ZINC SULFATE PO SCH (09:53)
[2020-11-20] MEDS: PULMICORT NEB TX 0.5 MG NEB SCH (09:55)
[2020-11-20] MEDS: XOPENEX 1.25 MG/3 ML NEBULE NEB PRN (09:55)
--- NOTE | 2020-11-20 10:24 | RAD ---
HISTORYCOVID, SOBSTUDYCHEST, 1 VIEWCOMPARISONPortable chestFINDINGSThe trachea is midline. The cardiac silhouette is unremarkable . The bibasilar infiltrates have increased slightly when compared to yesterdays film.. The bony thorax is unremarkable.IMPRESSIONThe patchy bibasilar infiltrates have increased minimally especially in the left compared to yesterdays film.Electronically signed by: MAXIMILIAN PARK (Nov 20, 2020 10:22:15)
[2020-11-20] MEDS: NS 1/2 1000 ML IV 1,000 ML IV SCH (12:37)
[2020-11-20 16:44] VITALS: BP 110/66
--- NOTE | 2020-12-03 10:52 | W.DIS.FURT ---
Summary of Discharge Discharge Summary of Date Date of Exam: 11/20/20 Admission Date Date of Admission: 11/18/20 Admission Diagnosis Patient Problems (Updated 12/03/20 @ 10:54 by Luzmaria Alfonso) Sepsis (Acute) A41.9 Respiratory alkalosis (Acute) E87.3 Metabolic acidosis (Acute) E87.2 Hypoxia (Acute) R09.02 COVID-19 (Acute) U07.1 Bilateral pneumonia (Acute) J18.9 Hospital Course: Ms. Olivarez is a 55y/o female with a PMH of Atrial fibrillation, HTN and GERD presented with worsening cough, body aches, fever and generalized weakness. She also reports headache, nausea and diarrhea. She states she was recently diagnosed with a lesion in the brain, saw Oncologist in [place] and was suppose to have further tests. She is not on any chemotherapy or radiation. She states she has been sick since . She has been having fever, Tmax 102-103 for the past few days. She had a rapid test done few days ago which was negative. She had PCR sent out which she has not gotten results yet. She was being treated with z-pack and ivermectin. In the ED, CXR showed bilateral pneumonia. COVID test done in the ED was positive. Labs: WBC 5 Hgb 13.8 Plt 209 Na: 138 K: 3.8 BUN/Cr: 22/1.26 CO2: 18.5 Lacic acid 1.4 ABG 7.57///17 on RA Patient was started on decadron, IV abx and Remdesivir in the ED. She was also started on anti-emetics and hydration. Stool studies were negative for C diff. CT head was also done due to having headaches, no acute changes. Her diet was gradually advanced as tolerated. Labs were monitored daily and electrolytes replaced as needed. Patient continued to improve and was tolerating PO diet. She was stable for discharge. RT evaluated her for home O2 and she required 3 L Oxygen. She will f/u with PCP as needed. Labs: Laboratory Last Values WBC 5.3 X10^3/uL (3.6-10.0) 11/20/20 04:35 RBC 3.57 X10^6/uL (3.5-5.4) 11/20/20 04:35 Hgb 11.4 g/dL (12.0-16.0) L 11/20/20 04:35 Hct 34.0 % (36.0-47.0) L 11/20/20 04:35 MCV 95.2 fL (80.0-100.0) 11/20/20 04:35 MCH 32.0 pg (27.0-34.0) 11/20/20 04:35 MCHC 33.6 g/dL (33.0-35.0) 11/20/20 04:35 RDW 13.5 % (11.6-16.5) 11/20/20 04:35 Plt Count 228 X10^3/uL (150.0-450.0) 11/20/20 04:35 MPV 8.6 fL (7.4-11.0) 11/20/20 04:35 Neut % (Auto) 76.1 % (42.0-75.0) H 11/20/20 04:35 Lymph % (Auto) 20.2 % (21.0-51.0) L 11/20/20 04:35 [place] % (Auto) 3.1 % (0.0-13.0) 11/20/20 04:35 Eos % (Auto) 0.2 % (0.9-2.9) L 11/20/20 04:35 Baso % (Auto) 0.4 % (0.2-1.0) 11/20/20 04:35 Neut # (Auto) 4.0 x10^3/uL (2.2-4.8) 11/20/20 04:35 Lymph # (Auto) 1.1 X10^3/uL (1.3-2.9) L 11/20/20 04:35 [place] # (Auto) 0.2 x10^3/uL (0.3-0.8) L 11/20/20 04:35 Eos # (Auto) 0.0 x10^3/uL (0.0-0.2) 11/20/20 04:35 Baso # (Auto) 0.0 X10^3/uL (0.0-0.1) 11/20/20 04:35 Absolute Nucleated RBC 0.1 /100WBC 11/20/20 04:35 Sample Site Lrad 11/20/20 05:48 ABG pH 7.480 (7.35-7.45) H 11/20/20 05:48 ABG pCO2 28.0 mmHg (35.0-45.0) L 11/20/20 05:48 ABG pO2 63.0 mmHg (80.0-100.0) L 11/20/20 05:48 ABG HCO3 20.9 mmol/L (22-26) L 11/20/20 05:48 ABG O2 Saturation 93.0 % (90-100) 11/20/20 05:48 ABG Base Excess -1.5 mmol/L (-2.0-2.0) 11/20/20 05:48 Hussain Test Pos 11/20/20 05:48 A-a Gradient 52.0 mmHg 11/20/20 05:48 FiO2 21.0 11/20/20 05:48 Blood Gas Comments Alex abg well-mtf 11/20/20 05:48 Sodium 141 mmol/L (136-145) 11/20/20 04:35 Corrected Sodium TNP 11/20/20 04:35 Potassium 3.6 mmol/L (3.5-5.1) 11/20/20 04:35 Chloride 108 mmol/L (98-107) H 11/20/20 04:35 Carbon Dioxide 20.1 mmol/L (21-32) L 11/20/20 04:35 BUN 18 mg/dL (7-18) 11/20/20 04:35 Creatinine 0.85 mg/dL (0.55-1.02) 11/20/20 04:35 Est GFR (MDRD) Af Amer > 60 (>60) 11/20/20 04:35 Est GFR (MDRD) Non-Af > 60 (>60) 11/20/20 04:35 Glucose 108 mg/dL (65-99) H 11/20/20 04:35 Lactic Acid 1.4 mmol/L (0.4-2.0) 11/18/20 04:42 Calcium 8.7 mg/dL (8.5-10.1) 11/20/20 04:35 Corrected Calcium 9.9 mg/dL (8.5-10.1) 11/20/20 04:35 Magnesium 2.0 mg/dL (1.7-2.9) 11/19/20 05:39 Ferritin 737 ng/mL (8-252) H 11/18/20 04:42 Total Bilirubin 0.20 mg/dL (0.2-1.0) 11/20/20 04:35 AST 64 Units/L (15-37) H 11/20/20 04:35 ALT 51 Units/L (12-78) 11/20/20 04:35 Alkaline Phosphatase 37 Units/L (46-116) L 11/20/20 04:35 Lactate Dehydrogenase 402 Units/L (81-234) H 11/18/20 04:42 C-Reactive Protein 96.70 mg/L (0-3.0) H 11/20/20 04:35 Total Protein 6.7 g/dL (6.4-8.2) 11/20/20 04:35 Albumin 2.5 g/dL (3.4-5.0) L 11/20/20 04:35 Globulin 4.2 g/dL (2.5-4.5) 11/20/20 04:35 Albumin/Globulin Ratio 0.6 Ratio (1.1-2.1) L 11/20/20 04:35 Stl C. diff Tox B Gene Negative (NEGATIVE) 11/19/20 14:47 Stl C. diff [id number] Negative (NEGATIVE) 11/19/20 14:47 Influenza Type A (PCR) Negative (NEGATIVE) 11/18/20 04:49 Influenza Type B (PCR) Negative (NEGATIVE) 11/18/20 04:49 SARS CoV-2 RNA Rapid NEREYDA Positive (NEGATIVE) A 11/18/20 05:55 Reason For Visit: SEPSIS,BILATERAL PNEU,COVID Discharge Date Discharge Date: 11/20/20 Discharge Diagnosis All Active Problems (Updated 12/03/20 @ 10:54 by uLzmaria Alfonso) HTN (hypertension) (Chronic) GI symptoms (Acute) Sepsis (Acute) Respiratory alkalosis (Acute) Metabolic acidosis (Acute) Hypoxia (Acute) COVID-19 (Acute) Bilateral pneumonia (Acute) Gastritis (Acute) Mixed hyperlipidemia (Chronic) Acute renal failure (ARF) (Acute) Dysphagia (Chronic) Nondiabetic gastroparesis (Chronic) Atrial flutter (Chronic) Abdominal pain (Acute) Sepsis (Acute) Cystitis (Acute) Nausea (Acute) Plan of Treatment: Continue with present treatment and follow up plan. Pt is to keep follow up appointment as instructed and take medications as ordered. Discharge Medications Discharge Medications: codeine Allergy (Verified 08/26/19 19:52) gabapentin Allergy (Verified 11/18/20 04:13) New Prescriptions albuterol sulfate 2 puff INHALATION Q4-6H PRN #6.7 g 11/20/20 [Rx] benzonatate [Tessalon Perles] 100 mg PO BID-TID PRN #20 cap 11/20/20 [Rx] loperamide 2 mg PO Q6H PRN #7 cap 11/20/20 [Rx] methylprednisolone See Rx Instructions .ROUTE .COMPLEX #21 ea 11/20/20 [Rx] Follow up and Referral Follow Up: 1 Week (PCP) Discharge Disposition Discharge Disposition: Home Discharge Condition: Stable Discharge Plan Discharge Plan Hospital Course: Ms. Olivarez is a 55y/o female with a PMH of Atrial fibrillation, HTN and GERD presented with worsening cough, body aches, fever and generalized weakness. She also reports headache, nausea and diarrhea. She states she was recently diagnosed with a lesion in the brain, saw Oncologist in [place] and was suppose to have further tests. She is not on any chemotherapy or radiation. She states she has been sick since . She has been having fever, Tmax 102-103 for the past few days. She had a rapid test done few days ago which was negative. She had PCR sent out which she has not gotten results yet. She was being treated with z-pack and ivermectin. In the ED, CXR showed bilateral pneumonia. COVID test done in the ED was positive. Labs: WBC 5 Hgb 13.8 Plt 209 Na: 138 K: 3.8 BUN/Cr: 22/1.26 CO2: 18.5 Lacic acid 1.4 ABG 7.57///17 on RA Patient was started on decadron, IV abx and Remdesivir in the ED. She was also started on anti-emetics and hydration. Stool studies were negative for C diff. CT head was also done due to having headaches, no acute changes. Her diet was gradually advanced as tolerated. Labs were monitored daily and electrolytes replaced as needed. Patient continued to improve and was tolerating PO diet. She was stable for discharge. RT evaluated her for home O2 and she required 3 L Oxygen. She will f/u with PCP as needed. Patient Disposition: 01 HOME, SELF-CARE Condition: Stable Health Concerns: Post Hospitalization: new medications and changes needed to prevent readmission or further decline. Pt educated and given instructions on all concerns. Care Plan Goals: Problem: Respiratory Complications Goal: Improved Uncomplicated Respiratory Status Instructions: Follow provided instructions. Follow up with primary physician as directed. Contact primary care physician or report to the closest Emergency Room if condition worsens. Plan of Treatment: Continue with present treatment and follow up plan. Pt is to keep follow up appointment as instructed and take medications as ordered. Prescriptions: New methylprednisolone 4 mg tablets,dose pack See Rx Instructions .ROUTE .COMPLEX Qty: 21 RF: 0 benzonatate [Tessalon Perles] 100 mg capsule 100 mg PO BID-TID PRN (Reason: cough) Qty: 20 RF: 0 albuterol sulfate 90 mcg/actuation HFA aerosol inhaler 2 puff inhalation Q4-6H PRNQty: 6.7 RF: 1 loperamide 2 mg capsule 2 mg PO Q6H PRN (Reason: loose stool) Qty: 7 RF: 0 Continued butalbital-acetaminophen [Bupap] 50-300 mg Tablet 1 tab PO BID PRNRF: 0 pantoprazole 40 mg tablet,delayed release (DR/EC) 40 mg PO HS 30 Days Qty: 30 RF: 0 metoprolol tartrate 25 mg tablet 25 mg PO BID 30 Days Qty: 60 RF: 0 Orders to Discharge Patient Discharge Orders: Discharge (Routine); Ordered 11/20/20 Ordered By: Luzmaria Alfonso Follow ups/Referrals Follow ups/Referrals: ROLO MENDIOLA [Primary Care Provider] - 11/26/20 10:00 am Instructions Instructions: Home Oxygen Use, Adult, Sepsis, Adult, Hypertension, Easy-to-Re ad, Diarrhea, Adult, [id number], Atrial Fibrillation, [id number] Stand Alone Forms: Excuse From Work or School, Precautions for COVID19, Patient Portal, Social Distancing
== END 2020-11-20 16:35 | disposition home or self-care (01) ==
LOC: ER 04:00 → OBS 04:00 → MED/SURG 11-19 21:18
PROVIDERS: ADMIT Internal Medicine; ATTEND Internal Medicine
DX: I10 Essential (primary) hypertension; R79.82 Elevated C-reactive protein (CRP); E87.3 Alkalosis; I48.91 Unspecified atrial fibrillation; R19.7 Diarrhea, unspecified; R51.9 Headache, unspecified; R26.89 Other abnormalities of gait and mobility; U07.1 COVID-19; R06.02 Shortness of breath; J12.82 Pneumonia due to coronavirus disease 2019; R79.89 Other specified abnormal findings of blood chemistry; E87.2 Acidosis; G93.9 Disorder of brain, unspecified; K21.9 Gastro-esophageal reflux disease without esophagitis